=== PATIENT | female | born 1975 | race Caucasian/White ===

== ENCOUNTER 2022-10-26 17:17 | Emergency (ER) | payer BC, MEDICAID, SELFPAY ==
[2022-10-26 17:23] VITALS: BP 127/64; PULSE 106; RESP 16; TEMP 36.7; O2SAT 97; BMI 25.9
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
== END 2022-10-26 19:39 | disposition home or self-care (01) ==
PROVIDERS: Emergency Provider Nurse Practitioner Family; PCP Family Medicine
DX: S00.12XA Contusion of left eyelid and periocular area, initial encounter (principal); H11.422 Conjunctival edema, left eye; Y04.2XXA Assault by strike against or bumped into by another person, initial encounter
CPT/HCPCS: 70150; 99283

== ENCOUNTER 2022-10-29 18:55 | Emergency (ER) | payer BC, MEDICAID, SELFPAY ==
[2022-10-29 18:57] VITALS: BMI 25.8
[2022-10-29 19:01] VITALS: BP 125/76; PULSE 97; RESP 16; TEMP 37.1; O2SAT 96
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
--- NOTE | 2022-10-29 19:32 | ECG_ITS ---
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 Measurements Intervals [place] Rate: 86 P: 57 MA: 151 QRS: 86 QRSD: 91 T: 27 QT: 380 QTc: 455 Interpretive Statements SINUS RHYTHM WITH OCCASIONAL VENTRICULAR PREMATURE COMPLEXES NONSPECIFIC T-WAVE ABNORMALITY Compared to ECG 10/04/2014 19:07:56 Ventricular premature complex(es) now present T-wave abnormality still present Electronically Signed On 10-29-2022 23:25:36 CDT by Yogesh Ureña M.D. [id number]
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
[2022-10-29] MEDS: sodium chloride 0.9% 1,000 ML 999 ML IV (19:43)
[2022-10-29 19:46] LABS: Basophils % 0.3 %; Eosinophils # 0.1 10^3/uL (0.0-0.8); Hematocrit 35.5 % (37.0-47.0); Hemoglobin 11.4 g/dL (11.5-15.3); Lymphocytes # 1.4 10^3/uL (0.8-4.8); Lymphocytes % 17.9 %; Mean Corpuscular HGB Conc 32.1 g/dL (30.0-36.0); Mean Corpuscular Hemoglobin 29.2 pg (28.0-34.0); Mean Corpuscular Volume 90.8 fl (81-99); Mean Platelet Volume 9.5 fL (7.4-10.4); Monocytes # 0.3 10^3/uL (0.2-0.9); Neutrophils # 5.88 10^3/uL (1.8-7.7); Neutrophils % 76.4 %; Nucleated Red Blood Cells % 0 %; Platelet Count 235 10^3/cmm (130-400); Red Blood Count 3.91 10^6/uL (4.1-5.3); White Blood Count 7.7 10^3/uL (4.0-10.0)
[2022-10-29 19:50] LABS: Add Urine Microscopic? YES; Bacteria Urine 2+ /hpf; Bilirubin Urine Neg (Negative); Blood Urine Neg (Negative); Glucose Urine UA Norm (Normal); Ketones Urine Negative (Negative); Leukocyte Esterase Urine Negative (Negative); Nitrate Urine Positive (Negative); Protein Urine Neg (Negative); RBC Urine RARE /hpf (0-2); Squamous Epithelial Cell Urine 0-4 /hpf (0-5); Urine Appearance Hazy (CLEAR); Urine Color Yellow (Yellow); Urobilinogen Urine Norm (Negative); WBC Urine 0-4 /hpf (0-5); pH Urine 7 (5-7)
[2022-10-29] MEDS: ondansetron 2 mg/ML SDV 2 mL 4 MG IVP (19:53)
[2022-10-29 19:54] LABS: Amphetamines Screen Urine Negative (Negative); Barbiturates Screen Urine Negative (Negative); Benzodiazepines Screen Urine Negative (Negative); Cocaine Screen Urine Negative (Negative); Opiate Screen Urine Negative (Negative); PCP Screen Urine Negative (Negative); THC Screen Urine Positive (Negative)
[2022-10-29 20:04] LABS: Alanine Aminotransferase 12 U/L (0-33); Albumin Level 4.2 g/dL (3.5-5.2); Alcohol Level 122 mg/dL (0-10); Alkaline Phosphatase 55 U/L (35-105); Anion Gap 14.2 (5-19); Aspartate Amino Transferase 17 U/L (0-32); Blood Urea Nitrogen 14 mg/dL (6-20); Calcium 8.8 mg/dL (8.5-10.5); Carbon Dioxide 26 mmol/L (22-29); Chloride 107 mmol/L (98-107); Creatinine Clr Calc Pharmacy 104.6067; Globulin 2.4 g/dL (1.3-4.6); Glomerular Filtration Rate 90.9 mL/min (90-130); Glucose 96 mg/dL (65-115); Osmolality Calculated 296 mOsm/kg (285-295); Potassium 4.2 mmol/L (3.5-5.1); Sodium 143 mmol/L (136-145); Total Bilirubin 0.2 mg/dL (0.15-1.2); Total Protein 6.6 g/dL (6.6-8.7)
[2022-10-29] MEDS: hyDROXYzine 25 mg Capsule PO (20:11)
[2022-10-29 21:06] VITALS: BP 128/61; PULSE 82; RESP 14; O2SAT 97
== END 2022-10-29 21:23 | disposition home or self-care (01) ==
PROVIDERS: Emergency Provider Emergency Medicine; PCP Family Medicine
DX: R41.82 Altered mental status, unspecified (principal); T50.903A Poisoning by unspecified drugs, medicaments and biological substances, assault, initial encounter
CPT/HCPCS: 70450; 71045; 80053; 80306; 80307; 81001; 85025; 93005; 96361; 96374; 99285; J2405; J7030

== ENCOUNTER 2023-12-21 09:50 | Emergency (ER) | payer BC, MEDICAID, SELFPAY ==
[2023-12-21 09:51] VITALS: BP 164/94; PULSE 99; RESP 20; TEMP 36.7; O2SAT 97; BMI 25.0
--- NOTE | 2023-12-21 09:53 | ECG_ITS ---
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 Measurements Intervals [place] Rate: 101 P: 60 ID: [id number] QRS: 71 QRSD: 98 T: 58 QT: 407 QTc: 529 Interpretive Statements SINUS TACHYCARDIA POSSIBLE ANTERIOR MYOCARDIAL INFARCTION , OF INDETERMINATE AGE [30 ms Q WAVE IN V3/V4, OR R < 0.2 mV IN V4] INTERPRETATION BASED ON A DEFAULT AGE OF 40 YEARS Compared to ECG 10/29/2022 19:39:31 Sinus rhythm no longer present Ventricular premature complex(es) no longer present T-wave abnormality no longer present Electronically Signed On 12-22-2023 7:07:18 CDT by Chapin Perez M.D. [id number] f
--- NOTE | 2023-12-21 10:11 | XRR_ITS ---
PROCEDURE INFORMATION: Exam: XR Chest Exam date and time: 12/21/2023 10:31 AM Age: 48 years old Clinical indication: Pain; Chest pressure; Additional info: Chest pain TECHNIQUE: Imaging protocol: Radiologic exam of the chest. Views: 1 view. COMPARISON: CR XR chest 1V portable [id number] 10/29/2022 6:36 PM FINDINGS: Lungs: Unremarkable. No consolidation. Pleural spaces: Unremarkable. No pleural effusion. No pneumothorax. Heart/Mediastinum: Unremarkable. No cardiomegaly. Bones/joints: Unremarkable. XR/XR chest 1V portable [id number] IMPRESSION: No acute findings.
--- NOTE | 2023-12-21 10:24 | ED_ITS ---
HPI - SOB/Dyspnea 2 General: Chief Complaint: Shortness of Breath/Dyspnea Stated Complaint: CHEST PAIN Time Seen by Provider: 12/21/23 10:04 History of Present Illness: HPI Narrative: 48-year-old female presents emerged depa rtment chief complaint of shortness of breath and midsternal chest pain with radiation to the back patient does endorse she drank an unspecified amount of alcohol earlier today as well as used methamphetamine last night. The patient reports no other associated symptoms. Associated symptoms: Reports chest pain and palpitations; Deny abdominal pain, extremity pain, fever(s), nausea or vomiting Review of Systems 2 General: Reports: 10 or more systems reviewed and unremarkable except in HPI and below Const: Denies: fever(s), chills, fatigue or malaise Eyes: Denies: change in vision or blurry vision Card: Reports: chest pain and palpitations Resp: Reports: dyspnea; Denies: productive cough GI: Denies: abdominal pain, nausea or vomiting : Denies: flank pain Musc: Denies: extremity pain or extremity swelling Skin/Breast: Denies: rash or pruritus Neuro: Denies: headache(s) Psych: Denies: anxiety or depression Martin/Lymph: Denies: easy bleeding All/Imm: Denies: urticaria, throat swelling or facial swelling Physical Exam 2 Narrative: EXAM NARRATIVE: Patient appears very anxious on exam does appear to be under the influence of a stimulant such as methamphetamine. Patient appears somewhat anxious and agitated on exam however appears in no obvious acute distress equal breath sounds appreciated bilaterally no obvious wheezing crackles rales or rhonchi appreciated. Const: COMMON NORMALS: no acute distress, patient oriented x3 and healthy appearing HENMT: COMMON NORMALS: normocephalic and atraumatic HEAD & SCALP: n ormocephalic and atraumatic Eye: COMMON NORMALS: Equal, round and reactive pupils present and EOMs intact bilaterally PUPIL: Yes Equal, round and reactive pupils present Neck/C-Spine: COMMON NORMALS: full ROM, supple and no JVD Lymph: LYMPHATIC: no lymphadenopathy noted Chest: COMMONS NORMALS: normal inspection of the chest and normal palpation of entire chest wall Resp: COMMON NORMALS: normal respiratory effort, No retractions and clear to auscultation bilaterally EFFORT & INSPECTION: Yes able to speak in complete sentences and Yes symmetric chest movement AUSCULTATION: clear to auscultation bilaterally OTHER: No obvious wheezing crackles rales or rhonchi appreciated Cardio: COMMON NORMALS: no JVD, regular rate and regular rhythm RATE: r egular rate RHYTHM: regular rhythm GI: COMMON NORMALS: Normal to inspection, nondistended, normoactive bowel sounds present, Soft to palpation and non-tender INSPECTION: Yes normal to inspection PALPATION: Yes Soft to palpation : COMMON NORMALS: Yes no CVA tenderness BLADDER/KIDNEY EXAM: Yes no CVA tenderness Back/Pelvis: COMMON NORMALS: no CVA tenderness Extremity: COMMON NORMALS: normal to inspection and full ROM Neuro: COMMON NORMALS: patient oriented x3, CN's II-XII intact bilaterally, moves all extremities and no focal motor deficits Psych: COMMON NORMALS: mental status grossly normal, Normal thought process present, cooperative and normal affect THOUGHT PROCESS: Normal thought process present Skin: COMMON NORMALS: no rashes or lesions noted GENERAL SKIN EXAM: no rashes or lesions noted Course 2 Vital Signs: Vital signs: Vital Signs Temperature 98.0 F 12/21/23 09:51 Pulse Rate 99 12/21/23 09:51 Respiratory Rate 20 H 12/21/23 09:51 Blood Pressure 135/84 12/21/23 12:00 Pulse Oximetry 99 12/21/23 12:00 MDM - SOB/Dyspnea Medical Decision Making Due to patient's symptoms and condition basic cardiac and pulmonary workup will be obtained we will continue to follow. Patient was found to have a urinary tract infection she is provided a dose of Rocephin for this liver enzymes are marginally elevated blood alcohol level is negative her urine was positive for both methamphetamine as well as marijuana. Patient is stable for discharge home advised for the follow-up primary care in 2 to 3 days to take her medications as prescribed in which to return the interim if any of her symptoms persist or worse. Lab Data 12/21/23 10:46 12/21/23 10:46 Labs/Radiology: Radiology Impressions Chest X-Ray 12/21/23 10:11 IMPRESSION: No acute findings. Laboratory Results WBC 7.47 10^3/uL (3.29-11.43) 12/21/23 10:46 RBC 4.19 10^6/uL (3.85-5.65) 12/21/23 10:46 Hgb 14.20 g/dL (11.27-16.99) 12/21/23 10:46 Hct 41.7 % (36-47) 12/21/23 10:46 MCV 99.5 fl (85-98) H 12/21/23 10:46 MCH 33.9 pg (27-33) H 12/21/23 10:46 MCHC 34.1 g/dL (30-55) 12/21/23 10:46 RDW 13.2 % (12.1-15.1) 12/21/23 10:46 Plt Count 235 10^3/cmm (157-399) 12/21/23 10:46 MPV 9.0 fL (7.4-10.4) 12/21/23 10:46 Neut % (Auto) 77.9 % 12/21/23 10:46 Lymph % (Auto) 15.5 % 12/21/23 10:46 [place] % (Auto) 5.2 % 12/21/23 10:46 Eos % (Auto) 0.7 % 12/21/23 10:46 Baso % (Auto) 0.4 % 12/21/23 10:46 Neut # (Auto) 5.82 10^3/uL (1.8-7.7) 12/21/23 10:46 Lymph # (Auto) 1.2 10^3/uL (0.8-4.8) 12/21/23 10:46 [place] # (Auto) 0.4 10^3/uL (0.2-0.9) 12/21/23 10:46 Eos # (Auto) 0.1 10^3/uL (0.0-0.8) 12/21/23 10:46 Baso # (Auto) 0.0 10^3/uL (0.0-0.1) 12/21/23 10:46 Nucleated RBC % (auto) 0 % 12/21/23 10:46 Nucleated RBCs # 0.0 /100WBC 12/21/23 10:46 Sodium 139 mmol/L (136-145) 12/21/23 10:46 Potassium 3.8 mmol/L (3.5-5.1) 12/21/23 10:46 Chloride 100 mmol/L (98-107) 12/21/23 10:46 Carbon Dioxide 21 mmol/L (22-29) L 12/21/23 10:46 Anion Gap 21.8 (5-19) H 12/21/23 10:46 BUN 11 mg/dL (6-20) 12/21/23 10:46 Creatinine 0.6 mg/dL (0.5-0.9) 12/21/23 10:46 GFR Calculation 107.6 mL/min (90-130) 12/21/23 10:46 Glucose 81 mg/dL (65-115) 12/21/23 10:46 Calculated Osmolality 286 mOsm/kg (285-295) 12/21/23 10:46 Calcium 9.4 mg/dL (8.5-10.5) 12/21/23 10:46 Total Bilirubin 0.9 mg/dL (0.15-1.2) 12/21/23 10:46 AST 66 U/L (0-32) H 12/21/23 10:46 ALT 31 U/L (0-33) 12/21/23 10:46 Alkaline Phosphatase 91 U/L (35-105) 12/21/23 10:46 Troponin T Baseline 8 ng/L (0-10) 12/21/23 10:46 NT-Pro-B Natriuret Pep 242 pg/mL (0-125) H 12/21/23 10:46 Total Protein 7.6 g/dL (6.6-8.7) 12/21/23 10:46 Albumin 4.5 g/dL (3.5-5.2) 12/21/23 10:46 Globulin 3.1 g/dL (1.3-4.6) 12/21/23 10:46 Lipase 28 U/L (13-60) 12/21/23 10:46 Urine Color Yellow (Yellow) 12/21/23 11:07 Urine Appearance Clear (CLEAR) 12/21/23 11:07 Urine pH 6.5 (5-7) 12/21/23 11:07 Ur Specific [place] 1.015 (1.005-1.030) 12/21/23 11:07 Urine Protein Trace (Negative) 12/21/23 11:07 Urine Glucose (UA) Norm (Normal) 12/21/23 11:07 Urine Ketones 2+ (Negative) H 12/21/23 11:07 Urine Blood Trace (Negative) H 12/21/23 11:07 Urine Nitrate Positive (Negative) A 12/21/23 11:07 Urine Bilirubin Neg (Negative) 12/21/23 11:07 Urine Urobilinogen Norm mg/dL (Negative) 12/21/23 11:07 Ur Leukocyte Esterase Negative (Negative) 12/21/23 11:07 Urine RBC 0-4 /hpf (0-2) H 12/21/23 11:07 Urine WBC 10-15 /hpf (0-5) H 12/21/23 11:07 Ur Squamous Epith Cells 0-4 /hpf (0-5) H 12/21/23 11:07 Amorphous Sediment Not Reportable 12/21/23 11:07 Urine Bacteria 3+ /hpf (NONE) H 12/21/23 11:07 Urine Opiates Screen Negative ng/mL (Negative) 12/21/23 11:07 Ur Barbiturates Screen Negative ng/mL (Negative) 12/21/23 11:07 Ur Phencyclidine Scrn Negative ng/mL (Negative) 12/21/23 11:07 Ur Amphetamines Screen Positive ng/mL (Negative) H 12/21/23 11:07 U Benzodiazepines Scrn Negative ng/mL (Negative) 12/21/23 11:07 Urine Cocaine Screen Negative ng/mL (Negative) 12/21/23 11:07 U Marijuana (THC) Screen Positive ng/mL (Negative) H 12/21/23 11:07 Ethyl Alcohol < 10 mg/dL (0-10) 12/21/23 10:46 XR interpretation done by ED provider, pending radiology final review Discharge Plan Discharge Patient Disposition: Home Clinical Impression: UTI (urinary tract infection), Polysubstance abuse Condition: Stable Prescriptions: New ciprofloxacin HCl 500 mg tablet 500 mg PO Q12H Qty: 14 0RF Discharge Orders: Discharge ED (Routine); Ordered 12/21/23 Ordered By: Javier Ramachandran Referrals: Magi Carrillo DO [Primary Care Provider] - 4-7 days Discharge Diet: Advance as tolerated Discharge Activity: Increase activity as tolerated Patient Instructions: Urinary Tract Infection in Women (DC), Urinary Tract Infection in Women (ED), Polysubstance Use Disorder (ED) Activity Restrictions/Additional Instructions: Take medication prescribed please further follow-up primary care in 3 to 5 days in which to return the interim if any of your symptoms persist or worse. Coding Level of Care Code ED [employer]
[2023-12-21 10:53] LABS: Basophils % 0.4 %; Eosinophils # 0.1 10^3/uL (0.0-0.8); Eosinophils % 0.7 %; Hematocrit 41.7 % (36-47); Lymphocytes # 1.2 10^3/uL (0.8-4.8); Lymphocytes % 15.5 %; Mean Corpuscular HGB Conc 34.1 g/dL (30-55); Mean Corpuscular Hemoglobin 33.9 pg (27-33); Mean Corpuscular Volume 99.5 fl (85-98); Monocytes # 0.4 10^3/uL (0.2-0.9); Monocytes % 5.2 %; Neutrophils # 5.82 10^3/uL (1.8-7.7); Neutrophils % 77.9 %; Nucleated Red Blood Cells % 0 %; Platelet Count 235 10^3/cmm (157-399); Red Blood Count 4.19 10^6/uL (3.85-5.65); Red Cell Distribution Width 13.2 % (12.1-15.1); White Blood Count 7.47 10^3/uL (3.29-11.43)
[2023-12-21] MEDS: sodium chloride 0.9% 1,000 ML 999 ML IV (11:09)
[2023-12-21 11:13] LABS: Troponin(5th) Baseline 8 ng/L (0-10)
[2023-12-21 11:21] LABS: Alanine Aminotransferase 31 U/L (0-33); Albumin Level 4.5 g/dL (3.5-5.2); Alkaline Phosphatase 91 U/L (35-105); Anion Gap 21.8 (5-19); Aspartate Amino Transferase 66 U/L (0-32); Blood Urea Nitrogen 11 mg/dL (6-20); Calcium 9.4 mg/dL (8.5-10.5); Carbon Dioxide 21 mmol/L (22-29); Chloride 100 mmol/L (98-107); Creatinine Clr Calc Pharmacy 117.8207; Globulin 3.1 g/dL (1.3-4.6); Glomerular Filtration Rate 107.6 mL/min (90-130); Glucose 81 mg/dL (65-115); Lipase 28 U/L (13-60); NT Pro B Type Natriuretic Pept 242 pg/mL (0-125); Osmolality Calculated 286 mOsm/kg (285-295); Potassium 3.8 mmol/L (3.5-5.1); Sodium 139 mmol/L (136-145); Total Bilirubin 0.9 mg/dL (0.15-1.2); Total Protein 7.6 g/dL (6.6-8.7)
[2023-12-21 11:33] LABS: Amphetamines Screen Urine Positive (Negative); Barbiturates Screen Urine Negative (Negative); Benzodiazepines Screen Urine Negative (Negative); Cocaine Screen Urine Negative (Negative); Opiate Screen Urine Negative (Negative); PCP Screen Urine Negative (Negative); THC Screen Urine Positive (Negative)
[2023-12-21 11:37] LABS: Alcohol Level < 10 mg/dL (0-10)
[2023-12-21 11:42] LABS: Urine Appearance Clear (CLEAR); Urine Color Yellow (Yellow)
[2023-12-21 11:43] LABS: Add Urine Microscopic? YES; Bilirubin Urine Neg (Negative); Blood Urine Trace (Negative); Glucose Urine UA Norm (Normal); Ketones Urine 2+ (Negative); Leukocyte Esterase Urine Negative (Negative); Nitrate Urine Positive (Negative); Protein Urine Trace (Negative); Specific Gravity, Urine 1.015 (1.005-1.030); Urobilinogen Urine Norm (Negative); pH Urine 6.5 (5-7)
[2023-12-21 11:44] LABS: Add Urine Culture? Yes; Bacteria Urine 3+ /hpf; RBC Urine 0-4 /hpf (0-2); Squamous Epithelial Cell Urine 0-4 /hpf (0-5)
[2023-12-21 12:00] VITALS: BP 135/84; O2SAT 99
[2023-12-21] MEDS: cefTRIAXone 1,000 mg SDV 1000 MG IVP (12:41)
== END 2023-12-21 13:08 | disposition home or self-care (01) ==
PROVIDERS: Emergency Provider Emergency Medicine; PCP Family Medicine
DX: N39.0 Urinary tract infection, site not specified (principal); F19.10 Other psychoactive substance abuse, uncomplicated
CPT/HCPCS: 36415; 71045; 80053; 80306; 80307; 81001; 83690; 83880; 84484; 85025; 87077; 87086; 87186; 93005; 96361; 96374; 99285; J0696; J7030

== ENCOUNTER 2024-01-06 07:49 | Emergency (ER) | payer BC, MEDICAID, SELFPAY ==
[2024-01-06 07:54] VITALS: BP 168/75; PULSE 82; RESP 18; TEMP 36.8; O2SAT 98; BMI 25.0
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
[2024-01-06 08:46] VITALS: BP 159/96; PULSE 85; O2SAT 98
[2024-01-06 08:53] LABS: Charge for UA Resulting for Rev
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
[2024-01-06 09:24] LABS: Bilirubin Urine Negative (Negative); Blood Urine Negative (Negative); Glucose Urine UA Negative (Normal); Ketones Urine Trace (Negative); Leukocyte Esterase Urine Negative (Negative); Nitrate Urine Negative (Negative); Protein Urine Trace (Negative); Specific Gravity, Urine 1.011 (1.005-1.030); Urine Appearance Clear (CLEAR); Urine Color Yellow (Yellow); pH Urine 8.5 (5-7)
[2024-01-06 09:29] LABS: Bacteria Urine None Seen /hpf; Hyaline Casts Urine 0-4 /lpf; RBC Urine 0-2 /hpf (0-2); Squamous Epithelial Cell Urine 0-5 /hpf (0-5); WBC Urine 0-5 /hpf (0-5)
[2024-01-06 09:33] LABS: Amphetamines Screen Urine Positive (Negative); Barbiturates Screen Urine Negative (Negative); Benzodiazepines Screen Urine Negative (Negative); Cocaine Screen Urine Negative (Negative); Opiate Screen Urine Negative (Negative); PCP Screen Urine Negative (Negative); THC Screen Urine Positive (Negative)
[2024-01-06 10:37] LABS: Basophils % 0.4 %; Eosinophils % 0.4 %; Hematocrit 42.5 % (36-47); Lymphocytes # 1.2 10^3/uL (0.8-4.8); Lymphocytes % 17.5 %; Mean Corpuscular HGB Conc 33.6 g/dL (30-55); Mean Corpuscular Hemoglobin 33.3 pg (27-33); Mean Corpuscular Volume 98.8 fl (85-98); Mean Platelet Volume 9.2 fL (7.4-10.4); Monocytes # 0.4 10^3/uL (0.2-0.9); Monocytes % 6.3 %; Neutrophils # 5.09 10^3/uL (1.8-7.7); Neutrophils % 75.1 %; Nucleated Red Blood Cells % 0 %; Platelet Count 189 10^3/cmm (157-399); Red Cell Distribution Width 13.2 % (12.1-15.1); White Blood Count 6.79 10^3/uL (3.29-11.43)
[2024-01-06] MEDS: LORazepam 1 mg Tablet PO (10:53)
[2024-01-06 10:54] LABS: Alanine Aminotransferase 45 U/L (0-33); Albumin Level 4.8 g/dL (3.5-5.2); Alkaline Phosphatase 129 U/L (35-105); Anion Gap 21.7 (5-19); Aspartate Amino Transferase 106 U/L (0-32); Blood Urea Nitrogen 8 mg/dL (6-20); Calcium 9.8 mg/dL (8.5-10.5); Carbon Dioxide 20 mmol/L (22-29); Chloride 98 mmol/L (98-107); Creatinine Clr Calc Pharmacy 141.3848; Globulin 2.9 g/dL (1.3-4.6); Glomerular Filtration Rate 132.8 mL/min (90-130); Glucose 89 mg/dL (65-115); HCG, Serum Qual Negative (Negative); Lipase 39 U/L (13-60); Osmolality Calculated 280 mOsm/kg (285-295); Potassium 3.7 mmol/L (3.5-5.1); Sodium 136 mmol/L (136-145); Total Bilirubin 0.9 mg/dL (0.15-1.2); Total Protein 7.7 g/dL (6.6-8.7)
[2024-01-06 11:28] VITALS: BP 136/110; PULSE 86; O2SAT 97
[2024-01-06 12:29] VITALS: BP 175/90; PULSE 89; O2SAT 97
[2024-01-06 12:38] LABS: Hepatitis A Antibody IgM Non-Reactive (Nonreactive); Hepatitis B Core IgM Non-Reactive (Nonreactive); Hepatitis B Surface Antigen Non-Reactive (Nonreactive); Hepatitis C Virus Antibody Reactive (Nonreactive)
[2024-01-07 15:39] LABS: HEP C RNA Viral Load Quant <1.18 NOT DETECTED Log IU/mL (NOT DETECTED); HEP C RNA Viral Load Quant <15 NOT DETECTED IU/mL (NOT DETECTED)
== END 2024-01-06 12:31 | disposition home or self-care (01) ==
PROVIDERS: Emergency Provider Family Medicine; PCP Family Medicine
DX: F15.10 Other stimulant abuse, uncomplicated (principal); F12.10 Cannabis abuse, uncomplicated; B19.20 Unspecified viral hepatitis C without hepatic coma
CPT/HCPCS: 36415; 70450; 80053; 80074; 80306; 81003; 81015; 83690; 84703; 85025; 87040; 87522; 99284

== ENCOUNTER 2024-01-15 15:18 | Emergency (ER) | payer BC, MEDICAID, SELFPAY ==
[2024-01-15 16:33] VITALS: BP 100/62; PULSE 111; RESP 18; TEMP 36.7; O2SAT 98
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
--- NOTE | 2024-01-15 17:25 | CTR_ITS ---
PROCEDURE INFORMATION: Exam: CT Abdomen And Pelvis With Contrast Exam date and time: 01/15/2024 7:07 PM Age: 48 years old Clinical indication: Abdominal pain; Additional info: Abdominal pain, bloating, cramping TECHNIQUE: Imaging protocol: Computed tomography of the abdomen and pelvis with contrast. Radiation optimization: All CT scans at this facility use at least one of these dose optimization techniques: automated exposure control; mA and/or kV adjustment per patient size (includes targeted exams where dose is matched to clinical indication); or iterative reconstruction. Contrast material: OMNI 350; Contrast volume: 100 ml; Contrast route: INTRAVENOUS (IV); COMPARISON: CR (CHEST, ) 12/21/2023 10:31 AM RADIATION DOSE METRICS: Total DLP (mGy-cm): 476 FINDINGS: Liver: Hepatic steatosis. Hepatomegaly measuring up to 22 cm. Gallbladder and biliary ducts: Normal. No calcified stones. No ductal dilation. Pancreas: Normal. No ductal dilation. Spleen: Normal. No splenomegaly. Adrenal glands: Normal. No mass. Kidneys and ureters: Simple cysts within the left kidney, no follow-up needed. No hydronephrosis. Stomach and bowel: Mild small bowel wall thickening concerning for enteritis in the appropriate clinical setting. There is fecalization of stool suggesting slow transit. No evidence of obstruction. Appendix: No evidence of appendicitis. Intraperitoneal space: Unremarkable. No free air. No significant fluid collection. Vasculature: Mild atherosclerotic calcifications. No abdominal aortic aneurysm. Lymph nodes: Unremarkable. No enlarged lymph nodes. Urinary bladder: Unremarkable as visualized. Reproductive: Unremarkable as visualized. Bones/joints: 2 mm retrolisthesis of L1 on L2, L2 on L3, and L3 on L4. Fractures. Soft tissues: Unremarkable. CT/CT abdomen pelvis w con* [id number] IMPRESSION: 1. Mild small bowel wall thickening concerning for enteritis in the appropriate clinical setting. There is fecalization of stool suggesting slow transit. No evidence of obstruction. 2. Hepatic steatosis and hepatomegaly. COMMENTS: Consistent with the [employer]'s Incidental Findings Committee white paper (J Am Sal Radiol 2018): Any incidental renal lesion less than 1 cm or classified as too small to characterize, or any incidental cystic renal lesion characterized as simple-appearing, is likely benign. No follow-up imaging is recommended for these lesions per consensus recommendations based on imaging criteria.
[2024-01-15 18:53] LABS: HCG, Serum Qual Negative (Negative)
[2024-01-15 18:58] LABS: Alanine Aminotransferase 63 U/L (0-33); Albumin Level 4.3 g/dL (3.5-5.2); Alcohol Level 259 mg/dL (0-10); Alkaline Phosphatase 105 U/L (35-105); Anion Gap 19.2 (5-19); Aspartate Amino Transferase 161 U/L (0-32); Blood Urea Nitrogen 10 mg/dL (6-20); Calcium 8.7 mg/dL (8.5-10.5); Carbon Dioxide 24 mmol/L (22-29); Chloride 101 mmol/L (98-107); Glomerular Filtration Rate 107.6 mL/min (90-130); Glucose 88 mg/dL (65-115); Osmolality Calculated 288 mOsm/kg (285-295); Potassium 4.2 mmol/L (3.5-5.1); Sodium 140 mmol/L (136-145); Total Bilirubin 0.3 mg/dL (0.15-1.2); Total Protein 6.3 g/dL (6.6-8.7)
[2024-01-15 19:02] LABS: Basophils % 0.4 %; Eosinophils % 0.8 %; Hematocrit 35.9 % (36-47); Lymphocytes # 1.2 10^3/uL (0.8-4.8); Lymphocytes % 25.3 %; Mean Corpuscular HGB Conc 34.5 g/dL (30-55); Mean Corpuscular Hemoglobin 34.6 pg (27-33); Mean Corpuscular Volume 100.3 fl (85-98); Mean Platelet Volume 9.4 fL (7.4-10.4); Monocytes # 0.4 10^3/uL (0.2-0.9); Monocytes % 7.1 %; Neutrophils # 3.25 10^3/uL (1.8-7.7); Neutrophils % 66.2 %; Nucleated Red Blood Cells % 0 %; Platelet Count 132 10^3/cmm (157-399); Red Blood Count 3.58 10^6/uL (3.85-5.65); Red Cell Distribution Width 13.7 % (12.1-15.1); White Blood Count 4.91 10^3/uL (3.29-11.43)
[2024-01-15] MEDS: iohexol 350 mg/mL 500 mL Btl (per mL) IV (19:12)
[2024-01-15 19:14] LABS: Acetaminophen < 5.0 ug/mL (10-30); Salicylate < 0.3 mg/dL (3-10)
[2024-01-15] MEDS: sodium chloride 0.9% 1,000 ML 999 ML IV (19:27)
[2024-01-15 19:36] LABS: Amphetamines Screen Urine Positive (Negative); Barbiturates Screen Urine Negative (Negative); Benzodiazepines Screen Urine Negative (Negative); Cocaine Screen Urine Negative (Negative); Opiate Screen Urine Positive (Negative); PCP Screen Urine Negative (Negative); THC Screen Urine Positive (Negative)
[2024-01-15 19:59] LABS: Lipase 109 U/L (13-60)
[2024-01-15 20:18] VITALS: PULSE 93; RESP 18; O2SAT 97
== END 2024-01-15 20:50 | disposition home or self-care (01) ==
PROVIDERS: Emergency Provider Physician Assistant; PCP Family Medicine
DX: F10.129 Alcohol abuse with intoxication, unspecified (principal); Y90.8 Blood alcohol level of 240 mg/100 ml or more; F19.10 Other psychoactive substance abuse, uncomplicated
CPT/HCPCS: 74177; 80053; 80306; 80307; 83690; 84703; 85025; 99285; J7030; Q9967

== ENCOUNTER 2024-02-16 12:10 | Emergency (ER) | payer BC, MEDICAID, SELFPAY ==
[2024-02-16] VITALS (7 sets, daily range): BP systolic 107–140; BP diastolic 66–94; PULSE 89–109; RESP 16–20; TEMP 36.7; O2SAT 96–98; BMI 25.0
[2024-02-16 14:31] LABS: Basophils % 0.2 %; Eosinophils # 0.1 10^3/uL (0.0-0.8); Eosinophils % 0.7 %; Hematocrit 38.3 % (36-47); Lymphocytes # 1.2 10^3/uL (0.8-4.8); Lymphocytes % 12.1 %; Mean Corpuscular HGB Conc 33.7 g/dL (30-55); Mean Corpuscular Hemoglobin 34.2 pg (27-33); Mean Corpuscular Volume 101.6 fl (85-98); Mean Platelet Volume 9.8 fL (7.4-10.4); Monocytes # 0.8 10^3/uL (0.2-0.9); Monocytes % 7.9 %; Neutrophils # 7.59 10^3/uL (1.8-7.7); Neutrophils % 78.6 %; Nucleated Red Blood Cells % 0 %; Platelet Count 163 10^3/cmm (157-399); Red Blood Count 3.77 10^6/uL (3.85-5.65); Red Cell Distribution Width 13.8 % (12.1-15.1); White Blood Count 9.66 10^3/uL (3.29-11.43)
[2024-02-16 14:48] LABS: Alanine Aminotransferase 40 U/L (0-33); Albumin Level 4.2 g/dL (3.5-5.2); Alkaline Phosphatase 133 U/L (35-105); Anion Gap 15.5 (5-19); Aspartate Amino Transferase 68 U/L (0-32); Blood Urea Nitrogen 15 mg/dL (6-20); Calcium 9.1 mg/dL (8.5-10.5); Carbon Dioxide 27 mmol/L (22-29); Chloride 92 mmol/L (98-107); Creatinine Clr Calc Pharmacy 100.9892; Globulin 3.4 g/dL (1.3-4.6); Glomerular Filtration Rate 90.1 mL/min (90-130); Glucose 87 mg/dL (65-115); Osmolality Calculated 272 mOsm/kg (285-295); Potassium 3.5 mmol/L (3.5-5.1); Sodium 131 mmol/L (136-145); Total Bilirubin 0.3 mg/dL (0.15-1.2); Total Protein 7.6 g/dL (6.6-8.7)
[2024-02-16 15:25] LABS: Alcohol Level 104 mg/dL (0-10)
[2024-02-16] MEDS: sodium chloride 0.9% 1,000 ML 999 ML IV (15:42)
[2024-02-16] MEDS: metoclopramide 5 mg/mL SDV 2 mL 10 MG IVP (15:43)
--- NOTE | 2024-02-16 15:47 | ED_ITS ---
HPI - Alcohol 2 General: Chief Complaint: Alcohol Stated Complaint: Alcohol Withdrawal Time Seen by Provider: 02/16/24 14:54 History of Present Illness: Patient presents to the ER reporting that she stopped drinking alcohol 4 days ago. And since then she has been hearing voices and having hallucinations. Today she woke up shaky and drank a half a pint of vodka. Patient says she normally drinks 2 pints of vodka daily. And is tried to quit multiple tribes cold turkey before but this is the most sick and weird feeling that she is ever felt. Patient is having nausea and vomiting. MD complaint: alcohol dependence Last drink: Days (ago) (For) Chronic alcohol use: Yes Previous visits for alcohol intoxication: Yes Recent trauma: No Associated symptoms: Reports nausea and vomiting Treatments prior to arrival: none Related Data Previous Rx's Medication Instructions Recorded ciprofloxacin HCl 500 mg tablet 500 mg PO Q12H #14 tabs 12/21/23 hydroxyzine HCl 25 mg tablet 25 mg PO Q6H PRN anxiety #20 tabs 01/06/24 ondansetron HCl 4 mg tablet 4 mg PO Q8H PRN nausea and 02/16/24 vomiting #14 tabs Allergies Allergy/AdvReac Type Severity Reaction Status Date / Time Sulfa (Sulfonamide Allergy ALGY-Bliste Verified 02/16/24 12:27 Antibiotics) r Review of Systems 2 GI: Reports: nausea and vomiting Physical Exam 2 Const: COMMON NORMALS: no acute distress, average body habitus, patient oriented x3, no limitations, healthy appearing, alert and well nourished HENMT: COMMON NORMALS: normocephalic, atraumatic, hearing grossly normal bilaterally, external ears normal, Normal external nose present and moist oral mucous membranes HEAD & SCALP: normocephalic and atraumatic NOSE: Normal external nose present EXTERNAL EAR: Yes external ears normal Neck/C-Spine: COMMON NORMALS: full ROM, no lymphadenopathy, supple, no meningeal signs, no JVD and Thyroid normal THYROID: Thyroid normal Chest: COMMONS NORMALS: normal inspection of the chest and normal palpation of entire chest wall Resp: COMMON NORMALS: normal respiratory effort, No retractions, No use of accessory muscles and clear to auscultation bilaterally AUSCULTATION: clear to auscultation bilaterally Cardio: COMMON NORMALS: no JVD, regular rate, regular rhythm, S1 normal heart sound present, S2 normal heart sound present, No gallops present (Cardio), No clicks present (Cardio), No murmurs present (Cardio) and No rub (Cardio) R ATE: regular rate RHYTHM: regular rhythm HEART SOUNDS: S1 normal heart sound present and S2 normal heart sound present GI: COMMON NORMALS: Normal to inspection, nondistended, normoactive bowel sounds present, Soft to palpation, non-tender, No hepatosplenomegaly present and no masses PALPATION: Yes Soft to palpation and Yes No hepatosplenomegaly present Neuro: COMMON NORMALS: patient oriented x3 SENSORIUM/ORIENTATION: Yes alert MENINGEAL SIGNS: Yes no meningeal signs Course 2 Vital Signs: Vital signs: Vital Signs Temperature 98.1 F 02/16/24 12:20 Pulse Rate 101 H 02/16/24 17:00 Respiratory Rate 18 02/16/24 16:00 Blood Pressure 140/76 02/16/24 17:00 Pulse Oximetry 97 02/16/24 17:00 Oxygen Delivery Me thod Room Air 02/16/24 17:00 MDM - Alcohol Medical Decision Making Patient presents to the ER complaining of nausea vomiting and possible alcohol withdrawal symptoms. Patient was given 1 L normal saline, 10 mg Reglan, and lab work was obtained. Lab work was essentially unremarkable. AST was 68, ALT 40, alk phos 133,. Upon reevaluation patient patient was sleeping soundly. When woken up she said she feels better. Patient be discharged home. Medical Records I reviewed the patient's medical records. Lab Data I reviewed the patient's lab results. 02/16/24 14:12 02/16/24 14:12 Laboratory Results WBC 9.66 10^3/uL (3.29-11.43) 02/16/24 14:12 RBC 3.77 10^6/uL (3.85-5.65) L 02/16/24 14:12 Hgb 12.90 g/dL (11.27-16.99) 02/16/24 14:12 Hct 38.3 % (36-47) 02/16/24 14:12 MCV 101.6 fl (85-98) H 02/16/24 14:12 MCH 34.2 pg (27-33) H 02/16/24 14:12 MCHC 33.7 g/dL (30-55) 02/16/24 14:12 RDW 13.8 % (12.1-15.1) 02/16/24 14:12 Plt Count 163 10^3/cmm (157-399) 02/16/24 14:12 MPV 9.8 fL (7.4-10.4) 02/16/24 14:12 Neut % (Auto) 78.6 % 02/16/24 14:12 Lymph % (Auto) 12.1 % 02/16/24 14:12 [place] % (Auto) 7.9 % 02/16/24 14:12 Eos % (Auto) 0.7 % 02/16/24 14:12 Baso % (Auto) 0.2 % 02/16/24 14:12 Neut # (Auto) 7.59 10^3/uL (1.8-7.7) 02/16/24 14:12 Lymph # (Auto) 1.2 10^3/uL (0.8-4.8) 02/16/24 14:12 [place] # (Auto) 0.8 10^3/uL (0.2-0.9) 02/16/24 14:12 Eos # (Auto) 0.1 10^3/uL (0.0-0.8) 02/16/24 14:12 Baso # (Auto) 0.0 10^3/uL (0.0-0.1) 02/16/24 14:12 Nucleated RBC % (auto) 0 % 02/16/24 14:12 Nucleated RBCs # 0.0 /100WBC 02/16/24 14:12 Sodium 131 mmol/L (136-145) L 02/16/24 14:12 Potassium 3.5 mmol/L (3.5-5.1) 02/16/24 14:12 Chloride 92 mmol/L (98-107) L 02/16/24 14:12 Carbon Dioxide 27 mmol/L (22-29) 02/16/24 14:12 Anion Gap 15.5 (5-19) 02/16/24 14:12 BUN 15 mg/dL (6-20) 02/16/24 14:12 Creatinine 0.7 mg/dL (0.5-0.9) 02/16/24 14:12 GFR Calculation 90.1 mL/min (90-130) 02/16/24 14:12 Glucose 87 mg/dL (65-115) 02/16/24 14:12 Calculated Osmolality 272 mOsm/kg (285-295) L 02/16/24 14:12 Calcium 9.1 mg/dL (8.5-10.5) 02/16/24 14:12 Magnesium 2.0 mg/dL (1.7-2.3) 02/16/24 14:12 Total Bilirubin 0.3 mg/dL (0.15-1.2) 02/16/24 14:12 AST 68 U/L (0-32) H 02/16/24 14:12 ALT 40 U/L (0-33) H 02/16/24 14:12 Alkaline Phosphatase 133 U/L (35-105) H 02/16/24 14:12 Total Protein 7.6 g/dL (6.6-8.7) 02/16/24 14:12 Albumin 4.2 g/dL (3.5-5.2) 02/16/24 14:12 Globulin 3.4 g/dL (1.3-4.6) 02/16/24 14:12 Urine Color Yellow (Yellow) 02/16/24 15:30 Urine Appearance Clear (CLEAR) 02/16/24 15:30 Urine pH 6 (5-7) 02/16/24 15:30 Ur Specific [place] 1.005 (1.005-1.030) 02/16/24 15:30 Urine Protein Neg (Negative) 02/16/24 15:30 Urine Glucose (UA) Norm (Normal) 02/16/24 15:30 Urine Ketones Negative (Negative) 02/16/24 15:30 Urine Blood Trace (Negative) H 02/16/24 15:30 Urine Nitrate Negative (Negative) 02/16/24 15:30 Urine Bilirubin Neg (Negative) 02/16/24 15:30 Urine Urobilinogen Norm mg/dL (Negative) 02/16/24 15:30 Ur Leukocyte Esterase Negative (Negative) 02/16/24 15:30 Urine RBC Rare /hpf (0-2) 02/16/24 15:30 Urine WBC 0-4 /hpf (0-5) H 02/16/24 15:30 Ur Squamous Epith Cells 0-4 /hpf (0-5) H 02/16/24 15:30 Amorphous Sediment Not Reportable 02/16/24 15:30 Urine Bacteria None /hpf (NONE) 02/16/24 15:30 Ethyl Alcohol 104 mg/dL (0-10) H 02/16/24 14:12 All radiology interpretation(s) finalized by discharge Discharge Plan Discharge Patient Disposition: Home Clinical Impression: Nausea & vomiting Qualifiers: Vomiting type: unspecified Qualified Code(s): R11.2 - Nausea with vomiting, unspecified Condition: Stable Prescriptions: New ondansetron HCl 4 mg tablet 4 mg PO Q8H PRN (Reason: nausea and vomiting) Qty: 14 0RF No Action ciprofloxacin HCl 500 mg tablet 500 mg PO Q12H Qty: 14 0RF hydroxyzine HCl 25 mg tablet 25 mg PO Q6H PRN (Reason: anxiety) Qty: 20 0RF Discharge Orders: Discharge ED (Routine); Ordered 02/16/24 Ordered By: Jesus Whitten Referrals: Magi Carrillo DO [Primary Care Provider] - 1 week Patient Instructions: Acute Nausea and Vomiting (ED) Activity Restrictions/Additional Instructions: Continue to sustain from alcohol use. Please follow-up with your family practice physician within next 7 to 10 days for further evaluation treatment. drink plenty of fluids, please get your medicine filled and take it as directed. Please continue to sustain from alcohol usage. Please follow-up with your family practice physician. 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
[2024-02-16 15:58] LABS: Add Urine Microscopic? YES; Bilirubin Urine Neg (Negative); Blood Urine Trace (Negative); Glucose Urine UA Norm (Normal); Ketones Urine Negative (Negative); Leukocyte Esterase Urine Negative (Negative); Nitrate Urine Negative (Negative); Protein Urine Neg (Negative); RBC Urine RARE /hpf (0-2); Specific Gravity, Urine 1.005 (1.005-1.030); Urine Appearance Clear (CLEAR); Urine Color Yellow (Yellow); Urobilinogen Urine Norm (Negative); pH Urine 6 (5-7)
[2024-02-16 15:59] LABS: Add Urine Culture? No; Squamous Epithelial Cell Urine 0-4 /hpf (0-5); WBC Urine 0-4 /hpf (0-5)
== END 2024-02-16 18:07 | disposition home or self-care (01) ==
PROVIDERS: Emergency Provider Emergency Medicine; PCP Family Medicine
DX: R11.2 Nausea with vomiting, unspecified (principal)
CPT/HCPCS: 36415; 80053; 80307; 81001; 83735; 85025; 96361; 96374; 99284; J2765; J7030

== ENCOUNTER 2024-08-01 14:56 | Inpatient (IN) | payer SELFPAY ==
[2024-08-01 15:13] VITALS: BP 158/83; PULSE 100; RESP 18; TEMP 37.1; O2SAT 95; BMI 25.8
--- NOTE | 2024-08-01 15:18 | ED_ITS ---
HPI - General Adult 2 General: Chief complaint: Psychiatric Symptoms Stated complaint: mhe Time Seen by Provider: 08/01/24 15:06 Source: patient History of Present Illness: Patient is a 48-year-old female who presents to the ER with complaint of suicidal ideation and requesting alcohol detox. She last drank alcohol about 3 minutes before arrival. Patient states she drinks about 1-1/2 pints of alcohol per day. She has self detox at home a couple of years ago. She states she has been having some occasional tremors at home that are uncontrollable which is why she ultimately presented to the ER. She does report having some suicidal ideation but currently has no plan for suicide. She states she knows that if she continues to drink she will kill herself but denies any direct plan for self-harm. She does acknowledge using methamphetamines a couple of days ago. She smoked methamphetamines at that time. She does have a history of IV drug use but states she has not used IV drugs in over 12 months. Associated symptoms: Deny chest pain, diaphoresis, dyspnea, headache(s), nausea, rash or vomiting Related Data Home Medications ?Medication ?Instructions ?Recorded ?Confirmed citalopram 10 mg tablet 30 mg PO DAILY 08/01/2406/27 gabapentin 300 mg capsule 300 mg PO TID 08/01/2408/01 hydroxyzine HCl 25 mg tablet 25 mg PO Q8H 08/01/2406/27 omeprazole 40 mg capsule,delayed 40 mg PO BID 08/01/24 08/01/24 release Allergies Allergy/AdvReac Type Severity Reaction Status Date / Time Sulfa (Sulfonamide Allergy Rashida Verified 02/16/24 12:27 Antibiotics) r Review of Systems 2 Const: Denies: fever(s), chills or diaphoresis Card: Denies: chest pain Resp: Denies: dyspnea GI: Denies: abdominal pain, nausea or vomiting Skin/Breast: Denies: rash Neuro: Denies: headache(s) Psych: Reports: depression, panic attacks, difficulty concentrating and suicidal ideation Physical Exam 2 Narrative: EXAM NARRATIVE: Somewhat restless 48-year-old female who is awake alert and in no acute distress Const: COMMON NORMALS: no acute distress, average body habitus, alert and well nourished GENERAL APPEARANCE: cooperative ORIENTATION/CONSCIOUSNESS: Yes awake HENMT: COMMON NORMALS: normocephalic and atraumatic HEAD & SCALP: n ormocephalic and atraumatic Eye: COMMON NORMALS: EOMs intact bilaterally Resp: COMMON NORMALS: normal respiratory effort, No retractions and No use of accessory muscles Extremity: COMMON NORMALS: full ROM and no pedal edema Neuro: COMMON NORMALS: no focal motor deficits SENSORIUM/ORIENTATION: Yes alert Psych: COMMON NORMALS: cooperative OTHER: Patient is restless, some pressured speech, endorses suicidal ideation without direct plan Skin: COMMON NORMALS: no rashes or lesions noted GENERAL SKIN EXAM: no rashes or lesions noted Course 2 Vital Signs: Vital signs: Vital Signs Temperature 98.8 F 08/01/24 15:13 Pulse Rate 100 08/01/24 15:13 Respiratory Rate 18 08/01/24 15:13 Blood Pressure 158/83 08/01/24 15:13 Pulse Oximetry 95 08/01/24 15:13 Oxygen Delivery Me thod Room Air 08/01/24 15:13 [facility] - General Adult Medical Decision Making 48-year-old female who was intoxicated and presents with suicidal ideation without current plan and request for alcohol detox. She has no other acute complaints physically. Blood alcohol level is elevated. Laboratory workup is otherwise unremarkable. Patient is calm and cooperative here. She is a voluntary admission. I spoke with Dr. Chacon with psychiatry who agrees to accept admission. Lab Data I reviewed the patient's lab results. 08/01/24 15:27 08/01/24 15:27 Laboratory Results WBC 5.99 10^3/uL (3.29-11.43) 08/01/24 15:27 RBC 3.92 10^6/uL (3.85-5.65) 08/01/24 15:27 Hgb 13.40 g/dL (11.27-16.99) 08/01/24 15:27 Hct 39.0 % (36-47) 08/01/24 15:27 MCV 99.5 fl (85-98) H 08/01/24 15:27 MCH 34.2 pg (27-33) H 08/01/24 15:27 MCHC 34.4 g/dL (30-55) 08/01/24 15:27 RDW 14.1 % (12.1-15.1) 08/01/24 15:27 Plt Count 199 10^3/cmm (157-399) 08/01/24 15:27 MPV 9.5 fL (7.4-10.4) 08/01/24 15:27 Neut % (Auto) 53.8 % 08/01/24 15:27 Lymph % (Auto) 35.4 % 08/01/24 15:27 [place] % (Auto) 7.0 % 08/01/24 15:27 Eos % (Auto) 2.8 % 08/01/24 15:27 Baso % (Auto) 0.7 % 08/01/24 15:27 Neut # (Auto) 3.22 10^3/uL (1.8-7.7) 08/01/24 15:27 Lymph # (Auto) 2.1 10^3/uL (0.8-4.8) 08/01/24 15:27 [place] # (Auto) 0.4 10^3/uL (0.2-0.9) 08/01/24 15:27 Eos # (Auto) 0.2 10^3/uL (0.0-0.8) 08/01/24 15:27 Baso # (Auto) 0.0 10^3/uL (0.0-0.1) 08/01/24 15:27 Nucleated RBC % (auto) 0 % 08/01/24 15: Nucleated RBCs # 0.0 /100WBC 08/01/24 15:27 Sodium 137 mmol/L (136-145) 08/01/24 15:27 Potassium 3.7 mmol/L (3.5-5.1) 08/01/24 15:27 Chloride 102 mmol/L (98-107) 08/01/24 15:27 Carbon Dioxide 23 mmol/L (22-29) 08/01/24 15:27 Anion Gap 15.7 (5-19) 08/01/24 15:27 BUN 8 mg/dL (6-20) 08/01/24 15:27 Creatinine 0.6 mg/dL (0.5-0.9) 08/01/24 15:27 GFR Calculation 107.6 mL/min (90-130) 08/01/24 15:27 Glucose 79 mg/dL (65-115) 08/01/24 15:27 Calculated Osmolality 281 mOsm/kg (285-295) L 08/01/24 15: Calcium 9.5 mg/dL (8.5-10.5) 08/01/24 15: Total Bilirubin 0.5 mg/dL (0.15-1.2) 08/01/24 15: AST 159 U/L (0-32) H 08/01/24 15: ALT 78 U/L (0-33) H 08/01/24 15: Alkaline Phosphatase 100 U/L (35-105) 08/01/24 15: Total Protein 6.8 g/dL (6.6-8.7) 08/01/24 15: Albumin 4.6 g/dL (3.5-5.2) 08/01/24 15: Globulin 2.2 g/dL (1.3-4.6) 08/01/24 15: HCG, Qual Negative (Negative) 08/01/24 15: Urine Color Yellow (Yellow) 08/01/24 15: Urine Appearance Clear (CLEAR) 08/01/24 15: Urine pH 5.5 (5-7) 08/01/24 15:28 Ur Specific [place] 1.005 (1.005-1.030) 08/01/24 15: Urine Protein Negative (Negative) 08/01/24 15: Urine Glucose (UA) Negative (Normal) 08/01/24 15: Urine Ketones Negative (Negative) 08/01/24 15: Urine Blood Negative (Negative) 08/01/24 15:28 Urine Nitrate Negative (Negative) 08/01/24 15:28 Urine Bilirubin Negative (Negative) 08/01/24 15:28 Urine Urobilinogen 0.2 mg/dL (Negative) 08/01/24 15:28 Ur Leukocyte Esterase Negative (Negative) 08/01/24 15:28 Urine RBC 0-4 /hpf (0-2) H 08/01/24 15:28 Urine WBC 0-4 /hpf (0-5) H 08/01/24 15:28 Ur Squamous Epith Cells 0-4 /hpf (0-5) H 08/01/24 15:28 Amorphous Sediment Not Reportable 08/01/24 15:28 Urine Bacteria Trace /hpf (NONE) 08/01/24 15:28 Salicylates < 0.3 mg/dL (3-10) L 08/01/24 15:27 Urine Opiates Screen Negative ng/mL (Negative) 08/01/24 15:28 Acetaminophen 12.4 ug/mL (10-30) 08/01/24 15:27 Ur Barbiturates Screen Negative ng/mL (Negative) 08/01/24 15:28 Ur Phencyclidine Scrn Negative ng/mL (Negative) 08/01/24 15:28 Ur Amphetamines Screen Positive ng/mL (Negative) H 08/01/24 15:28 U Benzodiazepines Scrn Negative ng/mL (Negative) 08/01/24 15:28 Urine Cocaine Screen Negative ng/mL (Negative) 08/01/24 15:28 U Marijuana (THC) Screen Negative ng/mL (Negative) 08/01/24 15:28 Ethyl Alcohol 239 mg/dL (0-10) H 08/01/24 15:27 No radiology studies performed this visit EKG Data EKG 1: Interpretation: Sinus rhythm with occasional PVC. Rate of 88 bpm. QTc of [address] elevation or depressions. Discharge Plan Discharge Patient Disposition: Admitted As Inpatient Admit Provider: Dg Chacon Clinical Impression: Suicidal ideation, Alcohol dependence, Methamphetamine abuse Condition: Stable Prescriptions: No Action citalopram 10 mg tablet 30 mg PO DAILY omeprazole 40 mg capsule,delayed release(DR/EC) 40 mg PO BID gabapentin 300 mg capsule 300 mg PO TID hydroxyzine HCl 25 mg tablet 25 mg PO Q8H Referrals: Magi Carrillo DO [Primary Care Provider] - Print Language: Angolan Coding Level of Care Code ED Cruise Consultant for [facility] Hailee
--- NOTE | 2024-08-01 15:32 | ECG_ITS ---
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 Measurements Intervals [place] Rate: 88 P: 72 FL: 144 QRS: 65 QRSD: 94 T: 57 QT: 398 QTc: 483 Interpretive Statements SINUS RHYTHM WITH OCCASIONAL VENTRICULAR PREMATURE COMPLEXES NONSPECIFIC T-WAVE ABNORMALITY Compared to ECG 12/21/2023 09:53:13 Ventricular premature complex(es) now present T-wave abnormality now present Sinus tachycardia no longer present Myocardial infarct finding no longer present Electronically Signed On 08-02-2024 12:16:37 DYSLEXIA TEACHER by Jannette Santamaria M.D. [email or web address]
[2024-08-01 15:33] LABS: Basophils % 0.7 %; Eosinophils # 0.2 10^3/uL (0.0-0.8); Eosinophils % 2.8 %; Lymphocytes # 2.1 10^3/uL (0.8-4.8); Lymphocytes % 35.4 %; Mean Corpuscular HGB Conc 34.4 g/dL (30-55); Mean Corpuscular Hemoglobin 34.2 pg (27-33); Mean Corpuscular Volume 99.5 fl (85-98); Mean Platelet Volume 9.5 fL (7.4-10.4); Monocytes # 0.4 10^3/uL (0.2-0.9); Neutrophils # 3.22 10^3/uL (1.8-7.7); Neutrophils % 53.8 %; Nucleated Red Blood Cells % 0 %; Platelet Count 199 10^3/cmm (157-399); Red Blood Count 3.92 10^6/uL (3.85-5.65); Red Cell Distribution Width 14.1 % (12.1-15.1); White Blood Count 5.99 10^3/uL (3.29-11.43)
[2024-08-01 15:39] LABS: HCG Qualitative Urine. Negative (Negative)
[2024-08-01 15:47] LABS: Bilirubin Urine Negative (Negative); Blood Urine Negative (Negative); Glucose Urine UA Negative (Normal); Ketones Urine Negative (Negative); Leukocyte Esterase Urine Negative (Negative); Nitrate Urine Negative (Negative); Protein Urine Negative (Negative); Specific Gravity, Urine 1.005 (1.005-1.030); Urine Appearance Clear (CLEAR); Urine Color Yellow (Yellow); Urobilinogen Urine 0.2 mg/dL (Negative); pH Urine 5.5 (5-7)
[2024-08-01 15:50] LABS: Acetaminophen 12.4 ug/mL (10-30); Alanine Aminotransferase 78 U/L (0-33); Albumin Level 4.6 g/dL (3.5-5.2); Alcohol Level 239 mg/dL (0-10); Alkaline Phosphatase 100 U/L (35-105); Anion Gap 15.7 (5-19); Aspartate Amino Transferase 159 U/L (0-32); Blood Urea Nitrogen 8 mg/dL (6-20); Calcium 9.5 mg/dL (8.5-10.5); Carbon Dioxide 23 mmol/L (22-29); Chloride 102 mmol/L (98-107); Creatinine Clr Calc Pharmacy 119.4986; Globulin 2.2 g/dL (1.3-4.6); Glomerular Filtration Rate 107.6 mL/min (90-130); Glucose 79 mg/dL (65-115); Osmolality Calculated 281 mOsm/kg (285-295); Potassium 3.7 mmol/L (3.5-5.1); Sodium 137 mmol/L (136-145); Total Bilirubin 0.5 mg/dL (0.15-1.2); Total Protein 6.8 g/dL (6.6-8.7)
[2024-08-01 15:51] LABS: Salicylate < 0.3 mg/dL (3-10)
[2024-08-01 15:54] LABS: Add Urine Microscopic? YES; Amphetamines Screen Urine Positive (Negative); Bacteria Urine TRACE /hpf; Barbiturates Screen Urine Negative (Negative); Benzodiazepines Screen Urine Negative (Negative); Cocaine Screen Urine Negative (Negative); Opiate Screen Urine Negative (Negative); PCP Screen Urine Negative (Negative); RBC Urine 0-4 /hpf (0-2); Squamous Epithelial Cell Urine 0-4 /hpf (0-5); THC Screen Urine Negative (Negative); WBC Urine 0-4 /hpf (0-5)
[2024-08-01 17:37] VITALS: BP 123/79; PULSE 97; RESP 18; TEMP 36.8; O2SAT 98
--- NOTE | 2024-08-01 17:49 | PC.NURSE ---
report called to Arthur in NPU, no further questions at end of report.
[2024-08-01] MEDS: acetaminophen 325 mg Tablet 650 MG PO (19:00)
[2024-08-01 20:12] VITALS: BP 127/90; PULSE 83; RESP 18; TEMP 37.2; O2SAT 97
[2024-08-01] MEDS: LORazepam 2 mg Tablet PO (21:30)
[2024-08-01] MEDS: trazodone 50 mg Tablet PO (21:30)
[2024-08-01] MEDS: ondansetron 4 MG Tablet PO (21:30)
[2024-08-01] MEDS: ibuprofen 600 mg Tablet PO (22:13)
[2024-08-01] MEDS: gabapentin 300 mg Capsule PO (23:22)
[2024-08-01] MEDS: citalopram 20 mg Tablet 30 MG PO (23:22)
[2024-08-01 23:30] VITALS: BP 166/89; PULSE 94; RESP 16; O2SAT 97
[2024-08-02 04:00] VITALS: BP 166/96; PULSE 82; RESP 16; O2SAT 98
[2024-08-02 08:00] VITALS: BP 149/73; PULSE 97; RESP 18; TEMP 37.1; O2SAT 94
[2024-08-02] MEDS: thiamine 100 mg Tablet PO (08:48)
[2024-08-02] MEDS: multivitamin therapeutic Tablet 1 TAB PO (08:48)
[2024-08-02] MEDS: gabapentin 300 mg Capsule PO ×3 (08:48→20:31)
[2024-08-02] MEDS: pantoprazole DR 40 mg Tablet PO (08:49)
[2024-08-02] MEDS: OLANZapine 5 mg ODT PO (08:49)
[2024-08-02] MEDS: folic acid 1 mg Tablet PO (08:49)
--- NOTE | 2024-08-02 10:05 | PC.NURSE ---
FLAT AFFECT NOTED, GUARDED WITH STAFF. EVASIVE WITH ASSESSMENT. DENIES PAIN. DENIES SI/HI AND AVH AT THIS TIME. RATES ANXIETY AND DEPRESSION 01/10. ZYDIS 5 MG GIVEN FOR INCREASED ANXIETY. SUPPORT VOICED,
[2024-08-02 12:00] VITALS: BP 120/72; PULSE 112; RESP 18; TEMP 37.1; O2SAT 96
--- NOTE | 2024-08-02 15:13 | PC.NURSE ---
NEW ORDERS RECEIVED FROM DR. SHIRLEY TO DISCONTINUE VISTARIL 25MG AND 50MG DUE TO PT STATING TAKING VISTARIL GIVES ME THE SHAKES. PT EDUCATED ON NEW ORDERS AND VERBALIZES UNDERSTANING.
[2024-08-02] MEDS: LORazepam 2 mg Tablet PO ×2 (15:19→20:30)
--- NOTE | 2024-08-02 15:20 | PC.NURSE ---
CIWA COMPLETED AND PT SCORED 13 AND REQUIRED 2 MG OF ATIVAN PO DUE TO HAVING SEVERE TREMORS, SWEATING, ANXIETY AND MILD NAUSEA. PT TOOK MEDICATIONS AND THEN WENT BACK TO RESTING IN BED. SUPPORT VOICED.
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
[2024-08-02 16:00] VITALS: BP 138/91; PULSE 80; RESP 18; TEMP 37.1; O2SAT 97
[2024-08-02 19:56] VITALS: BP 148/74; PULSE 83; RESP 18; TEMP 36.9; O2SAT 97
[2024-08-02] MEDS: citalopram 20 mg Tablet 30 MG PO (20:30)
[2024-08-02 23:59] VITALS: BP 147/97; PULSE 86; RESP 18; O2SAT 96
[2024-08-03 04:00] VITALS: BP 119/81; PULSE 97; RESP 18; TEMP 36.4; O2SAT 96
[2024-08-03 08:00] VITALS: BP 138/77; PULSE 78; RESP 16; O2SAT 97
[2024-08-03] MEDS: ibuprofen 600 mg Tablet PO ×2 (08:19→20:31)
[2024-08-03] MEDS: pantoprazole DR 40 mg Tablet PO (08:19)
[2024-08-03] MEDS: folic acid 1 mg Tablet PO (08:20)
[2024-08-03] MEDS: thiamine 100 mg Tablet PO (08:20)
[2024-08-03] MEDS: gabapentin 300 mg Capsule PO ×3 (08:20→20:27)
[2024-08-03] MEDS: LORazepam 2 mg Tablet PO ×2 (08:20→20:26)
[2024-08-03] MEDS: multivitamin therapeutic Tablet 1 TAB PO (08:20)
--- NOTE | 2024-08-03 09:04 | PC.NURSE ---
Pt. is alert and orient x 4 this am. Disheveled appearance. Tremors and shaky voice. Pt. requested an anxiety medication. Pt. scored 10 on CIWA Ativan PO given.
[2024-08-03 12:00] VITALS: BP 134/78; PULSE 83; RESP 16; O2SAT 96
--- NOTE | 2024-08-03 14:36 | P.NPUPN_ITS ---
Subjective NPU 2 Subjective: Patient presented today reporting that she is still really struggling with her withdrawal. She is on the CIWA protocol and has been dosed accordingly as she reports that this has managed her withdrawal appropriately. She continues to be isolative and mostly in her room and laying down per staff reports and direct observation. We discussed that as she feels better from the withdrawal we are hopeful for greater participation on the unit. She denied any side effects to the medication. Mental Status Exam 2 MSE Comments: This is a well-nourished well-developed white female in hospital scrubs looking older than her stated age with poor grooming grooming and limited eye contact. No abnormal movements except for psychomotor retardation and significant tremulousness. Cooperative with exam and mild to moderate distress. Speech was decreased rate and volume. Mood described as depressed, affect congruent and subdued. Thought process organized. Thought content: Patient endorsed some suicidal but denied homicidal ideation, there were no delusions noted or reported, she denied any active auditory or visual hallucinations. Described feelings of helplessness, hopelessness, worthlessness, and sadness, indicating depression. Reported anxiety related to current life circumstances. Denied any current suicidal thoughts or thoughts of violence against others, although mentioned a past suicide attempt approximately 10 years ago. No current hallucinations. Mood described as OK after taking medication. Stressors include alcohol use, past methamphetamine use, and emotional trauma. Attention and concentration were limited and memory was somewhat reliable but none were formally tested. She is alert at times but at times had to be aroused and oriented to person and place. Insight and judgment are limited and impulse control is impaired. Vitals/I&O/Wt Last Vital Signs Temp 97.5 F L 08/03/24 04:00 Pulse 83 08/03/24 12:00 Resp 16 08/03/24 12:00 BP 134/78 08/03/24 12:00 Pulse Ox 96 08/03/24 12:00 O2 Del Method Room Air 08/03/24 04:00 Weight last 48 hrs Weight 71.123 kg Weight 72.575 kg Data NPU 08/01/24 15:27 08/01/24 15:27 A&P Assessment and plan (1) Suicidal ideation: (2) Alcohol dependence: (3) Methamphetamine abuse: (4) Alcohol withdrawal: (5) Depression: (6) Anxiety: Plan This is a 48-year-old white female with a history of depression, anxiety and genetic loading for mental health, addiction and lethality issues who presents with active addiction including alcohol and methamphetamine positive UDS. The patient is experiencing alcohol use disorder, which has been a significant issue for approximately 10 years. There is a history of depression and anxiety, which the patient believes were exacerbated by alcohol use. The patient has also experienced suicidal ideation in the past, with one reported suicide attempt approximately 10 years ago. Additionally, the patient has a history of self- injurious behavior. There is no current suicidal ideation or intent to harm others. The patient is currently undergoing withdrawal management with the [facility] protocol. 1. Continue current medications. We will discuss naltrexone, Campral and/or Vivitrol after she has had some days of abstinence. 2. Encourage individual, group and milieu therapy. 3. Continue every 15 minute checks for safety. 4. Encourage sober living treatment after discharge at the highest level of care to which she is willing to commit. 5. Obtain collateral information. 6. Initiate CIWA protocol PDMP PDMP Reviewed: Not Reviewed Attestations NPU 2 Medical Necessity Statement*: Inpatient hospitalization is medically necessary and the clinically appropriate intervention at this time. We will monitor medications and make changes as indicated. Likely length of stay is three to five days. Coding Level of Care Code Acute Code for [facility] Fwd Diagnoses Suicidal ideation R45.851 Alcohol dependence F10.20 Methamphetamine abuse F15.10 Alcohol withdrawal F10.939 Depression F32.A Anxiety F41.9
[2024-08-03 16:00] VITALS: BP 135/86; PULSE 81; RESP 16; O2SAT 94
[2024-08-03 20:00] VITALS: BP 115/69; PULSE 106; RESP 18; TEMP 36.4; O2SAT 96
[2024-08-03] MEDS: trazodone 50 mg Tablet PO (20:27)
[2024-08-03] MEDS: citalopram 20 mg Tablet 30 MG PO (20:27)
--- NOTE | 2024-08-03 22:31 | PC.NURSE ---
Per CIWA protocol, patient administered 2mg ativan PO for CIWA score of 11.
[2024-08-04] VITALS: BP 136/95; PULSE 99; RESP 18; TEMP 37; O2SAT 98
[2024-08-04 04:00] VITALS: BP 108/80; PULSE 94; RESP 18; TEMP 37.1; O2SAT 96
[2024-08-04 08:00] VITALS: BP 105/72; PULSE 99; RESP 17; O2SAT 97
[2024-08-04] MEDS: multivitamin therapeutic Tablet 1 TAB PO (08:07)
[2024-08-04] MEDS: gabapentin 300 mg Capsule PO ×3 (08:07→21:06)
[2024-08-04] MEDS: pantoprazole DR 40 mg Tablet PO (08:07)
[2024-08-04] MEDS: folic acid 1 mg Tablet PO (08:07)
[2024-08-04] MEDS: thiamine 100 mg Tablet PO (08:07)
[2024-08-04] MEDS: LORazepam 2 mg Tablet PO (08:12)
--- NOTE | 2024-08-04 11:22 | PC.NURSE ---
Pt. stated she has a headache this am. Pt. has tremors although they are less than yesterday. Pt. has stayed in her room mostly thus far this shift.
[2024-08-04 12:00] VITALS: BP 101/58; PULSE 96; RESP 17; O2SAT 96
[2024-08-04] MEDS: OLANZapine 5 mg ODT PO ×2 (12:38→17:37)
--- NOTE | 2024-08-04 12:42 | PC.NURSE ---
Zyprexa Patient rates anxiety 12/10. This nurse administered zyprexa 5mg ODT to patient. Will continue to monitor.
[2024-08-04 16:00] VITALS: BP 125/69; PULSE 103; RESP 16; TEMP 36.9; O2SAT 94
[2024-08-04] MEDS: ibuprofen 600 mg Tablet PO (17:37)
[2024-08-04 19:57] VITALS: BP 104/64; PULSE 91; RESP 17; TEMP 37.1; O2SAT 97
--- NOTE | 2024-08-04 20:09 | P.NPUPN_ITS ---
Subjective NPU 2 Subjective: Patient presented today reporting that she is doing okay. She continued to be isolative and in her room for most of the day per staff reports and direct observation. We discussed the fact that she was reporting a desire to discharge and we agreed that the first step should be her getting out of her room and being more interactive on the unit and demonstrating that she is more prepared to discharge. We discussed that she continued to be tremulous and would like to see her moving around with less effort as well. She denied any side effects to the medication. Mental Status Exam 2 MSE Comments: This is a well-nourished well-developed white female in hospital scrubs looking older than her stated age with poor grooming grooming and limited eye contact. No abnormal movements except for psychomotor retardation and significant tremulousness. Cooperative with exam and mild to moderate distress. Speech was decreased rate and volume. Mood described as depressed, affect congruent and subdued. Thought process organized. Thought content: Patient endorsed some suicidal but denied homicidal ideation, there were no delusions noted or reported, she denied any active auditory or visual hallucinations. Described feelings of helplessness, hopelessness, worthlessness, and sadness, indicating depression. Reported anxiety related to current life circumstances. Denied any current suicidal thoughts or thoughts of violence against others, although mentioned a past suicide attempt approximately 10 years ago. No current hallucinations. Mood described as OK after taking medication. Stressors include alcohol use, past methamphetamine use, and emotional trauma. Attention and concentration were limited and memory was somewhat reliable but none were formally tested. She is alert at times but at times had to be aroused and oriented to person and place. Insight and judgment are limited and impulse control is impaired. Vitals/I&O/Wt Last Vital Signs Temp 98.7 F 08/04/24 19:57 Pulse 91 08/04/24 19:57 Resp 17 08/04/24 19:57 BP 104/64 08/04/24 19:57 Pulse Ox 97 08/04/24 19:57 O2 Del Method Room Air 08/04/24 19:57 Data NPU 08/01/24 15:27 08/01/24 15:27 A&P Assessment and plan (1) Suicidal ideation: (2) Alcohol dependence: (3) Methamphetamine abuse: (4) Alcohol withdrawal: (5) Depression: (6) Anxiety: Plan This is a 48-year-old white female with a history of depression, anxiety and genetic loading for mental health, addiction and lethality issues who presents with active addiction including alcohol and methamphetamine positive UDS. The patient is experiencing alcohol use disorder, which has been a significant issue for approximately 10 years. There is a history of depression and anxiety, which the patient believes were exacerbated by alcohol use. The patient has also experienced suicidal ideation in the past, with one reported suicide attempt approximately 10 years ago. Additionally, the patient has a history of self- injurious behavior. There is no current suicidal ideation or intent to harm others. The patient is currently undergoing withdrawal management with the [facility] protocol. 1. Continue current medications. We began to discuss naltrexone, Campral and/or Vivitrol after she has had some days of abstinence. 2. Encourage individual, group and milieu therapy. 3. Continue every 15 minute checks for safety. 4. Encourage sober living treatment after discharge at the highest level of care to which she is willing to commit. 5. Obtain collateral information. 6. Continue [facility] protocol PDMP PDMP Reviewed: Not Reviewed Attestations NPU 2 Medical Necessity Statement*: Inpatient hospitalization is medically necessary and the clinically appropriate intervention at this time. We will monitor medications and make changes as indicated. Likely length of stay is three to five days. Coding Level of Care Code Acute Code for [facility] Diagnoses Suicidal ideation R45.851 Alcohol dependence F10.20 Methamphetamine abuse F15.10 Alcohol withdrawal F10.939 Depression F32.A Anxiety F41.9
[2024-08-04] MEDS: trazodone 50 mg Tablet PO (21:06)
[2024-08-04] MEDS: citalopram 20 mg Tablet 30 MG PO (21:06)
[2024-08-05] VITALS (7 sets, daily range): BP systolic 109–144; BP diastolic 66–81; PULSE 76–94; RESP 16–18; TEMP 36.4–36.8; O2SAT 96–99
[2024-08-05] MEDS: thiamine 100 mg Tablet PO (08:27)
[2024-08-05] MEDS: multivitamin therapeutic Tablet 1 TAB PO (08:27)
[2024-08-05] MEDS: pantoprazole DR 40 mg Tablet PO (08:27)
[2024-08-05] MEDS: folic acid 1 mg Tablet PO (08:27)
[2024-08-05] MEDS: gabapentin 300 mg Capsule PO ×3 (08:27→21:38)
[2024-08-05] MEDS: OLANZapine 5 mg ODT PO ×2 (10:12→17:42)
--- NOTE | 2024-08-05 11:26 | W.PM.NPUPNS ---
Subjective NPU Subjective: Patient presented today reporting that she is doing better. She appears to be less sick per staff reports and direct observation. She identified a desire to go home reporting that her roommate visited and agreed that he would be more supportive in her recovery. We continued to discuss concerns that she is not really committing to doing something different. However then she reported that she is willing to go to some kind of sober living treatment but wanted to make sure she can go home first and we discussed that not always being a really good idea. She denied any side effects to the medication. Mental Status Exam MSE Comments: This is a well-nourished well-developed white female in hospital scrubs looking older than her stated age with poor grooming grooming and limited eye contact. No abnormal movements except for psychomotor retardation and significant tremulousness. Cooperative with exam and mild to moderate distress. Speech was decreased rate and volume. Mood described as depressed, affect congruent and subdued. Thought process organized. Thought content: Patient endorsed some suicidal but denied homicidal ideation, there were no delusions noted or reported, she denied any active auditory or visual hallucinations. Described feelings of helplessness, hopelessness, worthlessness, and sadness, indicating depression. Reported anxiety related to current life circumstances. Denied any current suicidal thoughts or thoughts of violence against others, although mentioned a past suicide attempt approximately 10 years ago. No current hallucinations. Mood described as OK after taking medication. Stressors include alcohol use, past methamphetamine use, and emotional trauma. Attention and concentration were limited and memory was somewhat reliable but none were formally tested. She is alert at times but at times had to be aroused and oriented to person and place. Insight and judgment are limited and impulse control is impaired. Vitals/I&O/Wt Last Vital Signs Temp 97.6 F 08/05/24 08:00 Pulse 84 08/05/24 08:00 Resp 16 08/05/24 08:00 BP 115/74 08/05/24 08:00 Pulse Ox 96 08/05/24 08:00 O2 Del Method Room Air 08/05/24 04:00 Data NPU 08/01/24 15:27 08/01/24 15:27 A&P Assessment and plan (1) Suicidal ideation: (2) Alcohol dependence: (3) Methamphetamine abuse: (4) Alcohol withdrawal: (5) Depression: (6) Anxiety: Plan This is a 48-year-old white female with a history of depression, anxiety and genetic loading for mental health, addiction and lethality issues who presents with active addiction including alcohol and methamphetamine positive UDS. The patient is experiencing alcohol use disorder, which has been a significant issue for approximately 10 years. There is a history of depression and anxiety, which the patient believes were exacerbated by alcohol use. The patient has also experienced suicidal ideation in the past, with one reported suicide attempt approximately 10 years ago. Additionally, the patient has a history of self-injurious behavior. There is no current suicidal ideation or intent to harm others. The patient is currently undergoing withdrawal management with the [facility] protocol. 1. Continue current medications. We began to discuss naltrexone, Campral and/or Vivitrol after she has had some days of abstinence. 2. Encourage individual, group and milieu therapy. 3. Continue every 15 minute checks for safety. 4. Encourage sober living treatment after discharge at the highest level of care to which she is willing to commit. 5. Obtain collateral information. 6. Continue [facility] protocol PDMP PDMP Reviewed: Not Reviewed Attestations NPU Medical Necessity Statement*: Inpatient hospitalization is medically necessary and the clinically appropriate intervention at this time. We will monitor medications and make changes as indicated. Likely length of stay is 2-4 days. Coding Level of Care Code Acute Code for [facility] Diagnoses Suicidal ideation R45.851 Alcohol dependence F10.20 Methamphetamine abuse F15.10 Alcohol withdrawal F10.939 Depression F32.A Anxiety F41.9
[2024-08-05] MEDS: LORazepam 2 mg Tablet PO (11:27)
[2024-08-05] MEDS: trazodone 50 mg Tablet PO (21:38)
[2024-08-05] MEDS: citalopram 20 mg Tablet 30 MG PO (21:38)
[2024-08-06 04:00] VITALS: BP 118/82; PULSE 90; RESP 18; TEMP 36.8; O2SAT 99
[2024-08-06 07:31] VITALS: BP 132/68; PULSE 72; RESP 16; TEMP 36.5; O2SAT 95
[2024-08-06] MEDS: gabapentin 300 mg Capsule PO ×3 (08:56→20:56)
[2024-08-06] MEDS: pantoprazole DR 40 mg Tablet PO (08:56)
[2024-08-06] MEDS: multivitamin therapeutic Tablet 1 TAB PO (08:56)
[2024-08-06] MEDS: thiamine 100 mg Tablet PO (08:56)
[2024-08-06] MEDS: folic acid 1 mg Tablet PO (08:56)
[2024-08-06] MEDS: OLANZapine 5 mg ODT PO ×3 (08:56→20:57)
--- NOTE | 2024-08-06 10:46 | PC.NURSE ---
NEW ORDERS RECEIVED FROM DR. SHIRLEY TO HAVE LAB COLLECT CBC AND CMP. ORDERS PLACED.
[2024-08-06 12:00] VITALS: BP 116/80; PULSE 102; RESP 18; TEMP 36.4; O2SAT 97
[2024-08-06] MEDS: haloperidol 5 mg Tablet PO ×2 (12:17→17:31)
[2024-08-06] MEDS: ibuprofen 600 mg Tablet PO ×2 (12:17→17:31)
--- NOTE | 2024-08-06 12:18 | P.NPUPN_ITS ---
Subjective NPU 2 Subjective: Patient presented today continuing to work on getting connections at [facility]. She identifies that she knows she needs sober living treatment but continues to report a desire to have at least a day with her children/grandchildren before going into treatment. We continue to discussed the importance of focusing on the long view and not be shortsighted. She denied any side effects to medication. Mental Status Exam 2 MSE Comments: This is a well-nourished well-developed white female in hospital scrubs looking older than her stated age with poor grooming grooming and limited eye contact. No abnormal movements except for psychomotor retardation and significant tremulousness. Cooperative with exam and mild to moderate distress. Speech was decreased rate and volume. Mood described as depressed, affect congruent and subdued. Thought process organized. Thought content: Patient endorsed some suicidal but denied homicidal ideation, there were no delusions noted or reported, she denied any active auditory or visual hallucinations. Described feelings of helplessness, hopelessness, worthlessness, and sadness, indicating depression. Reported anxiety related to current life circumstances. Denied any current suicidal thoughts or thoughts of violence against others, although mentioned a past suicide attempt approximately 10 years ago. No current hallucinations. Mood described as OK after taking medication. Stressors include alcohol use, past methamphetamine use, and emotional trauma. Attention and concentration were limited and memory was somewhat reliable but none were formally tested. She is alert at times but at times had to be aroused and oriented to person and place. Insight and judgment are limited and impulse control is impaired. Vitals/I&O/Wt Last Vital Signs Temp 97.7 F 08/06/24 07:31 Pulse 72 08/06/24 07:31 Resp 16 08/06/24 07:31 BP 132/68 08/06/24 07:31 Pulse Ox 95 08/06/24 07:31 O2 Del Method Room Air 08/06/24 07:31 Data NPU 08/06/24 12:52 08/06/24 12:52 A&P Assessment and plan (1) Suicidal ideation: (2) Alcohol dependence: (3) Methamphetamine abuse: (4) Alcohol withdrawal: (5) Depression: (6) Anxiety: Plan This is a 48-year-old white female with a history of depression, anxiety and genetic loading for mental health, addiction and lethality issues who presents with active addiction including alcohol and methamphetamine positive UDS. The patient is experiencing alcohol use disorder, which has been a significant issue for approximately 10 years. There is a history of depression and anxiety, which the patient believes were exacerbated by alcohol use. The patient has also experienced suicidal ideation in the past, with one reported suicide attempt approximately 10 years ago. Additionally, the patient has a history of self- injurious behavior. There is no current suicidal ideation or intent to harm others. The patient is currently undergoing withdrawal management with the [facility] protocol. 1. Continue current medications. We began to discuss naltrexone, Campral and/or Vivitrol after she has had some days of abstinence. 2. Encourage individual, group and milieu therapy. 3. Continue every 15 minute checks for safety. 4. Encourage sober living treatment after discharge at the highest level of care to which she is willing to commit. 5. Obtain collateral information. 6. Continue [facility] protocol PDMP PDMP Reviewed: Not Reviewed Attestations NPU 2 Medical Necessity Statement*: Inpatient hospitalization is medically necessary and the clinically appropriate intervention at this time. We will monitor medications and make changes as indicated. Likely length of stay is 2-4 days. Coding Level of Care Code Acute Code for [facility] Fwd Diagnoses Suicidal ideation R45.851 Alcohol dependence F10.20 Methamphetamine abuse F15.10 Alcohol withdrawal F10.939 Depression F32.A Anxiety F41.9
[2024-08-06 13:04] LABS: Hematocrit 40.1 % (36-47); Mean Corpuscular HGB Conc 31.9 g/dL (30-55); Mean Corpuscular Hemoglobin 34.1 pg (27-33); Mean Corpuscular Volume 106.9 fl (85-98); Mean Platelet Volume 9.9 fL (7.4-10.4); Platelet Count 206 10^3/cmm (157-399); Red Blood Count 3.75 10^6/uL (3.85-5.65); Red Cell Distribution Width 13.8 % (12.1-15.1); White Blood Count 5.21 10^3/uL (3.29-11.43)
[2024-08-06 13:17] LABS: Alanine Aminotransferase 52 U/L (0-33); Albumin Level 3.9 g/dL (3.5-5.2); Alkaline Phosphatase 76 U/L (35-105); Anion Gap 11.3 (5-19); Aspartate Amino Transferase 51 U/L (0-32); Blood Urea Nitrogen 13 mg/dL (6-20); Calcium 9.4 mg/dL (8.5-10.5); Carbon Dioxide 27 mmol/L (22-29); Chloride 103 mmol/L (98-107); Creatinine Clr Calc Pharmacy 142.1093; Globulin 1.9 g/dL (1.3-4.6); Glomerular Filtration Rate 132.8 mL/min (90-130); Glucose 77 mg/dL (65-115); Osmolality Calculated 283 mOsm/kg (285-295); Potassium 4.3 mmol/L (3.5-5.1); Sodium 137 mmol/L (136-145); Total Bilirubin 0.3 mg/dL (0.15-1.2); Total Protein 5.8 g/dL (6.6-8.7)
[2024-08-06 14:06] LABS: Absolute Eosinophils 0.2 10^3/cmm (0.0-0.7); Absolute Neutrophil 3.1 10^3/cmm (1.4-6.5); Absolute Segmented Neutrophil 3.1 10/cmm (1.6-7.1); Eosinophils 4 %; Lymphocytes 22 %; Lymphocytes Absolute 1.7 10^3/cmm (1.2-3.4); Monocytes Absolute 0.3 10^3/cmm (0.1-0.6); Platelet Estimate Normal (Normal); Segmented Neutrophils 59 %; Total Cells Counted 100 (0-100)
--- NOTE | 2024-08-06 16:06 | PC.NURSE ---
NEW ORDERS RECEIVED TO DISCONTINUE CIWA PROTOCOL, VITALS Q FOUR AND ATIVAN. NEW ORDERS PLACED FOR Q 8HOUR VITALS. ORDERS PLACED. PT EDUCATED ON NEW ORDERS, SUPPORT VOICED.
[2024-08-06 20:27] VITALS: BP 129/85; PULSE 84; RESP 16; TEMP 36.8; O2SAT 96
[2024-08-06] MEDS: citalopram 20 mg Tablet 30 MG PO (20:56)
[2024-08-06] MEDS: trazodone 50 mg Tablet PO (20:57)
[2024-08-07 06:00] VITALS: BP 118/76; PULSE 83; RESP 16; TEMP 36.4; O2SAT 98
[2024-08-07] MEDS: haloperidol 5 mg Tablet PO ×2 (08:59→14:45)
[2024-08-07] MEDS: pantoprazole DR 40 mg Tablet PO (08:59)
[2024-08-07] MEDS: folic acid 1 mg Tablet PO (08:59)
[2024-08-07] MEDS: multivitamin therapeutic Tablet 1 TAB PO (08:59)
[2024-08-07] MEDS: gabapentin 300 mg Capsule PO ×3 (08:59→21:24)
[2024-08-07] MEDS: thiamine 100 mg Tablet PO (08:59)
--- NOTE | 2024-08-07 09:15 | PC.NURSE ---
PT CONTINUES TO ISOLATE AND WITHDRAW TO ROOM. PT IS HAVING DIFFICULTY MANAGING AND NAVIGATING DIFFICULT PERSONALITIES ON THE UNIT AND STATES SHE FEELS ITS JUST BETTER FOR ME TO STAY IN HERE. DENIES SI/HI AND AVH AT THIS TIME. RATES ANXIETY AND DEPRESSION 02/10. HALDOL 5 MG GIVEN ORDERED FOR INCREASED ANXIETY AND AGITATION. AFFECT NOTED TO BE FLAT WITH DEPRESSED AND ANXIOUS MOOD. EVASIVE AT TIMES WITH STAFF. PT GOT UP AND WANTED BREAKFAST AT 0900 AM, PT WAS INFORMED STAFF ATTEMPTED TO WAKE HER UP BUT SHE CONTINUED TO SLEEP. TRAY WAS PROVIDED. PT THEN INFORMED THIS RN SHE WAS ATTEMPTING TO CALL REHABS TODAY SO SHE CAN GET HELP FOR HER ADDICTION WHEN SHE LEAVES. SUPPORT VOICED,
[2024-08-07] MEDS: acetaminophen 325 mg Tablet 650 MG PO (12:30)
[2024-08-07] MEDS: OLANZapine 5 mg ODT PO (12:33)
[2024-08-07 14:00] VITALS: BP 121/67; PULSE 100; RESP 18; TEMP 36.3; O2SAT 96
[2024-08-07] MEDS: ibuprofen 600 mg Tablet PO (14:43)
--- NOTE | 2024-08-07 15:37 | P.NPUPN_ITS ---
Subjective NPU 2 Subjective: Patient presented today reporting that she is doing fine. We had a lengthy discussion about concerns regarding her sobriety as [facility] is now reporting a possible bed date for 08/24/2024. We discussed our significant concerns about having to discharge her before then and her maintaining her sobriety for a long period of time given her limited success in doing that recently. She reports a commitment to her recovery but understanding that this will be a very challenging time because she has not been able to maintain sobriety for a couple weeks outside of the hospital for some time. She denied any side effects to medication and we discussed the possibility of naltrexone. Mental Status Exam 2 MSE Comments: This is a well-nourished well-developed white female in hospital scrubs looking older than her stated age with poor grooming grooming and limited eye contact. No abnormal movements except for psychomotor retardation and significant tremulousness. Cooperative with exam and mild to moderate distress. Speech was decreased rate and volume. Mood described as depressed, affect congruent and subdued. Thought process organized. Thought content: Patient endorsed some suicidal but denied homicidal ideation, there were no delusions noted or reported, she denied any active auditory or visual hallucinations. Described feelings of helplessness, hopelessness, worthlessness, and sadness, indicating depression. Reported anxiety related to current life circumstances. Denied any current suicidal thoughts or thoughts of violence against others, although mentioned a past suicide attempt approximately 10 years ago. No current hallucinations. Mood described as OK after taking medication. Stressors include alcohol use, past methamphetamine use, and emotional trauma. Attention and concentration were limited and memory was somewhat reliable but none were formally tested. She is alert at times but at times had to be aroused and oriented to person and place. Insight and judgment are limited and impulse control is impaired. Vitals/I&O/Wt Last Vital Signs Temp 97.6 F 08/07/24 06:00 Pulse 83 08/07/24 06:00 Resp 16 08/07/24 06:00 BP 118/76 08/07/24 06:00 Pulse Ox 98 08/07/24 06:00 O2 Del Method Room Air 08/07/24 06:00 Data NPU 08/06/24 12:52 08/06/24 12:52 A&P Assessment and plan (1) Suicidal ideation: (2) Alcohol dependence: (3) Methamphetamine abuse: (4) Alcohol withdrawal: (5) Depression: (6) Anxiety: Plan This is a 48-year-old white female with a history of depression, anxiety and genetic loading for mental health, addiction and lethality issues who presents with active addiction including alcohol and methamphetamine positive UDS. The patient is experiencing alcohol use disorder, which has been a significant issue for approximately 10 years. There is a history of depression and anxiety, which the patient believes were exacerbated by alcohol use. The patient has also experienced suicidal ideation in the past, with one reported suicide attempt approximately 10 years ago. Additionally, the patient has a history of self- injurious behavior. There is no current suicidal ideation or intent to harm others. The patient is currently undergoing withdrawal management with the [facility] protocol. 1. Continue current medications. We began to discuss naltrexone, Campral and/or Vivitrol after she has had some days of abstinence. 2. Encourage individual, group and milieu therapy. 3. Continue every 15 minute checks for safety. 4. Encourage sober living treatment after discharge at the highest level of care to which she is willing to commit. 5. Obtain collateral information. 6. Continue [facility] protocol. 7. Appears to have bed date at [facility] 08/24/2024. Plan for discharge on Saturday. PDMP PDMP Reviewed: Not Reviewed Involuntary Hold Information 2 Hold Status: Date/Time Hold Expires: VOLUNTARY Attestations NPU 2 Medical Necessity Statement*: Inpatient hospitalization is medically necessary and the clinically appropriate intervention at this time. We will monitor medications and make changes as indicated. Likely length of stay is 3 days. Coding Level of Care Code Acute Code for [facility] Diagnoses Suicidal ideation R45.851 Alcohol dependence F10.20 Methamphetamine abuse F15.10 Alcohol withdrawal F10.939 Depression F32.A Anxiety F41.9
[2024-08-07 19:55] VITALS: BP 118/61; PULSE 85; RESP 16; TEMP 37.1; O2SAT 98
[2024-08-07] MEDS: citalopram 20 mg Tablet 30 MG PO (21:23)
[2024-08-07] MEDS: trazodone 50 mg Tablet PO (21:24)
[2024-08-08 06:00] VITALS: BP 126/81; PULSE 87; RESP 16; TEMP 36.8; O2SAT 96
[2024-08-08] MEDS: folic acid 1 mg Tablet PO (08:25)
[2024-08-08] MEDS: multivitamin therapeutic Tablet 1 TAB PO (08:25)
[2024-08-08] MEDS: thiamine 100 mg Tablet PO (08:26)
[2024-08-08] MEDS: pantoprazole DR 40 mg Tablet PO (08:26)
[2024-08-08] MEDS: gabapentin 300 mg Capsule PO ×3 (08:26→20:43)
[2024-08-08] MEDS: haloperidol 5 mg Tablet PO ×2 (08:29→17:44)
[2024-08-08] MEDS: OLANZapine 5 mg ODT PO ×2 (10:53→20:43)
[2024-08-08 14:00] VITALS: BP 102/70; PULSE 96; RESP 17; TEMP 36.9; O2SAT 98
--- NOTE | 2024-08-08 15:39 | P.NPUPN_ITS ---
Subjective NPU 2 Subjective: Patient presented today reporting that she is feeling optimistic. She reports I know I can do it. We discussed that we are certain she can do it the question is if she will. We discussed the concern related to the long period of time she is going to have after discharge likely on Saturday before her bed date at [facility] on 08/24/2024. We discussed the critical need for her to create a safety net with her family and friends to buffer and hopefully prevent her from having access to alcohol or drugs of abuse over that 2-weeks. We discussed the possibility of naltrexone or some other agent to help with the drinking. Mental Status Exam 2 MSE Comments: This is a well-nourished well-developed white female in hospital scrubs looking older than her stated age with poor grooming grooming and limited eye contact. No abnormal movements except for psychomotor retardation and significant tremulousness. Cooperative with exam and mild to moderate distress. Speech was decreased rate and volume. Mood described as depressed, affect congruent and subdued. Thought process organized. Thought content: Patient endorsed some suicidal but denied homicidal ideation, there were no delusions noted or reported, she denied any active auditory or visual hallucinations. Stressors include alcohol use, past methamphetamine use, and emotional trauma. Attention and concentration were limited and memory was somewhat reliable but none were formally tested. She is alert at times but at times had to be aroused and oriented to person and place. Insight and judgment are limited and impulse control is impaired. Vitals/I&O/Wt Last Vital Signs Temp 98 F 08/08/24 19:54 Pulse 85 08/08/24 19:54 Resp 18 08/08/24 19:54 BP 139/79 08/08/24 19:54 Pulse Ox 96 08/08/24 19:54 O2 Del Method Room Air 08/08/24 19:54 Data NPU 08/06/24 12:52 08/06/24 12:52 A&P Assessment and plan (1) Suicidal ideation: (2) Alcohol dependence: (3) Methamphetamine abuse: (4) Alcohol withdrawal: (5) Depression: (6) Anxiety: Plan This is a 48-year-old white female with a history of depression, anxiety and genetic loading for mental health, addiction and lethality issues who presents with active addiction including alcohol and methamphetamine positive UDS. The patient is experiencing alcohol use disorder, which has been a significant issue for approximately 10 years. There is a history of depression and anxiety, which the patient believes were exacerbated by alcohol use. The patient has also experienced suicidal ideation in the past, with one reported suicide attempt approximately 10 years ago. Additionally, the patient has a history of self- injurious behavior. There is no current suicidal ideation or intent to harm others. The patient is currently undergoing withdrawal management with the [facility] protocol. 1. Continue current medications. We began to discuss naltrexone, Campral and/or Vivitrol after she has had some days of abstinence. 2. Encourage individual, group and milieu therapy. 3. Continue every 15 minute checks for safety. 4. Encourage sober living treatment after discharge at the highest level of care to which she is willing to commit. 5. Obtain collateral information. 6. Continue [facility] protocol. 7. Appears to have bed date at [facility] 08/24/2024. Plan for discharge on Saturday. PDMP PDMP Reviewed: Not Reviewed Involuntary Hold Information 2 Hold Status: Date/Time Hold Expires: VOLUNTARY Attestations NPU 2 Medical Necessity Statement*: Inpatient hospitalization is medically necessary and the clinically appropriate intervention at this time. We will monitor medications and make changes as indicated. Likely length of stay is 2 days. Coding Level of Care Code Acute Code for [facility] Fwd Diagnoses Suicidal ideation R45.851 Alcohol dependence F10.20 Methamphetamine abuse F15.10 Alcohol withdrawal F10.939 Depression F32.A Anxiety F41.9
[2024-08-08] MEDS: ibuprofen 600 mg Tablet PO (17:44)
[2024-08-08 19:54] VITALS: BP 139/79; PULSE 85; RESP 18; TEMP 36.6; O2SAT 96
[2024-08-08] MEDS: citalopram 20 mg Tablet 30 MG PO (20:43)
[2024-08-08] MEDS: nicotine 2 mg Gum BUCCAL (20:43)
[2024-08-08] MEDS: trazodone 50 mg Tablet PO (20:44)
[2024-08-09 06:00] VITALS: BP 134/67; PULSE 86; RESP 18; TEMP 36.5; O2SAT 97; BMI 26.8
[2024-08-09] MEDS: gabapentin 300 mg Capsule PO ×3 (08:01→20:09)
[2024-08-09] MEDS: pantoprazole DR 40 mg Tablet PO (08:01)
[2024-08-09] MEDS: folic acid 1 mg Tablet PO (08:01)
[2024-08-09] MEDS: multivitamin therapeutic Tablet 1 TAB PO (08:01)
[2024-08-09] MEDS: thiamine 100 mg Tablet PO (08:01)
[2024-08-09] MEDS: OLANZapine 5 mg ODT PO ×3 (08:07→20:09)
[2024-08-09] MEDS: ibuprofen 600 mg Tablet PO (12:27)
[2024-08-09] MEDS: haloperidol 5 mg Tablet PO (12:28)
[2024-08-09] MEDS: nicotine 2 mg Gum BUCCAL ×2 (13:14→20:09)
[2024-08-09 14:00] VITALS: BP 114/67; PULSE 83; RESP 17; TEMP 36.8; O2SAT 97
--- NOTE | 2024-08-09 16:18 | W.PM.NPUPNS ---
Subjective NPU Subjective: 48-year-old female with polysubstance dependence admitted with suicidal ideation. Patient had reported feeling more hopeful. She reported no current cravings for methamphetamine or alcohol. She had expressed interest in trying medications to reduce cravings for alcohol including Vivitrol. She had expressed desire to enter into the inpatient unit at [facility] on 08/24/2024. She states that she would go home until that time and hoped that she could rely on friends and family to keep her sober until August 24. Mental Status Exam MSE Comments: This is a well-nourished well-developed white female in hospital scrubs looking older than her stated age with poor grooming grooming and limited eye contact. No abnormal movements except for psychomotor retardation and significant tremulousness. Cooperative with exam and mild to moderate distress. Speech was decreased in rate and normal in productivity and volume. Mood described as a little better. Her affect remained flat and mood incongruent. Thought process was linear and organized. Thought content: Patient denied suicidal or homicidal ideation. She denied any active auditory or visual hallucinations. Stressors include alcohol use, past methamphetamine use, and emotional trauma. Attention and concentration were limited and memory was somewhat reliable but none were formally tested. She is alert at times but at times had to be aroused and oriented to person and place. Insight and judgment are limited and impulse control is impaired. Vitals/I&O/Wt Last Vital Signs Temp 98.3 F 08/09/24 14:00 Pulse 83 08/09/24 14:00 Resp 17 08/09/24 14:00 BP 114/67 08/09/24 14:00 Pulse Ox 97 08/09/24 14:00 O2 Del Method Room Air 08/09/24 06:00 Weight last 48 hrs Weight 75.353 kg Data NPU 08/06/24 12:52 08/06/24 12:52 A&P Assessment and plan (1) Suicidal ideation: (2) Alcohol dependence: (3) Methamphetamine abuse: (4) Alcohol withdrawal: (5) Depression: (6) Anxiety: Plan This is a 48-year-old white female with a history of depression, anxiety and genetic loading for mental health, addiction and lethality issues who presents with active addiction including alcohol and methamphetamine positive UDS. The patient is experiencing alcohol use disorder, which has been a significant issue for approximately 10 years. There is a history of depression and anxiety, which the patient believes were exacerbated by alcohol use. The patient has also experienced suicidal ideation in the past, with one reported suicide attempt approximately 10 years ago. Additionally, the patient has a history of self-injurious behavior. There is no current suicidal ideation or intent to harm others. The patient is currently undergoing withdrawal management with the [facility] protocol. 1. Continue current medications. Trial of naltrexone oral today with plan for vivitrol injection on outpatient basis. 2. Encourage individual, group and milieu therapy. 3. Continue every 15 minute checks for safety. 4. Encourage sober living treatment after discharge at the highest level of care to which she is willing to commit. 5. Obtain collateral information. 6. Continue [facility] protocol. 7. Appears to have bed date at [facility] 08/24/2024. Plan for discharge on Saturday. PDMP PDMP Reviewed: Not Reviewed Involuntary Hold Information Hold Status: Date/Time Hold Expires: VOLUNTARY Attestations NPU Medical Necessity Statement*: Inpatient hospitalization is medically necessary and the clinically appropriate intervention at this time. We will monitor medications and make changes as indicated. Likely length of stay is 1-2 days. Coding Level of Care Code Acute Code for g Fwd Diagnoses Suicidal ideation R45.851 Alcohol dependence F10.20 Methamphetamine abuse F15.10 Alcohol withdrawal F10.939 Depression F32.A Anxiety F41.9
[2024-08-09] MEDS: naltrexone hcl 50 mg Tablet PO (16:41)
[2024-08-09 19:54] VITALS: BP 109/62; PULSE 103; RESP 18; TEMP 36.7; O2SAT 96
[2024-08-09] MEDS: citalopram 20 mg Tablet 30 MG PO (20:09)
[2024-08-09] MEDS: trazodone 50 mg Tablet PO (20:12)
[2024-08-10 06:00] VITALS: BP 123/78; PULSE 81; RESP 16; TEMP 36.4; O2SAT 97
[2024-08-10] MEDS: thiamine 100 mg Tablet PO (08:01)
[2024-08-10] MEDS: pantoprazole DR 40 mg Tablet PO (08:01)
[2024-08-10] MEDS: multivitamin therapeutic Tablet 1 TAB PO (08:01)
[2024-08-10] MEDS: folic acid 1 mg Tablet PO (08:01)
[2024-08-10] MEDS: naltrexone hcl 50 mg Tablet PO (08:01)
[2024-08-10] MEDS: gabapentin 300 mg Capsule PO (08:01)
[2024-08-10] MEDS: ibuprofen 600 mg Tablet PO (12:05)
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
[2024-08-10 12:22] VITALS: BP 123/76; PULSE 81; RESP 17; O2SAT 97
== END 2024-08-10 13:42 | disposition home or self-care (01) | DRG 897 ==
LOC: ER 15:19 → NP 17:42
PROVIDERS: Admitting Provider Psychiatry & Neurology Psychiatry; Emergency Provider Student in an Organized Health Care Education/Training Program; PCP Family Medicine; Visit Provider Psychiatry & Neurology Psychiatry
DX: F10.239 Alcohol dependence with withdrawal, unspecified (principal); R45.851 Suicidal ideations; Y90.7 Blood alcohol level of 200-239 mg/100 ml; F15.10 Other stimulant abuse, uncomplicated; F32.A Depression, unspecified; F41.9 Anxiety disorder, unspecified; Z91.52 Personal history of nonsuicidal self-harm; Z81.8 Family history of other mental and behavioral disorders
CPT/HCPCS: 36415; 80053; 80306; 80307; 81001; 81025; 85007; 85025; 85027; 93005; 97150; 97165; 99285; J9999; Q0162